=== PATIENT | female | born 1960 | race Caucasian/White ===

== ENCOUNTER 2018-01-23 19:37 | Emergency (ER) | payer OTHER, SELFPAY ==
--- NOTE | 2018-01-23 21:15 | RAD REPORT ---
EXAM DESCRIPTION: RAD - Hand Left 3 View - 01/23/2018 8:46 pm CLINICAL HISTORY: Nontraumatic left hand pain, left thumb pain COMPARISON: None. FINDINGS: No fracture, dislocation or periosteal reaction noted. No measurable arthritic change. No acute bone or joint finding. No foreign body or other soft tissue abnormality. IMPRESSION: Negative left hand examination.
--- NOTE | 2018-01-23 21:24 | ER ---
Nurse's Notes [facility] Name: Lucy Lu Age: 57 yrs Sex: Female : 1960 Arrival Date: 01/23/2018 Time: 19:41 Bed 12 Private MD: Diagnosis: Trigger thumb, left thumb Presentation: 01/23 19:56 Presenting complaint: Patient states: Left thumb pain for 2-3 weeks, denies injury or aj trauma. No swelling noted at this time. Transition of care: patient was not received from another setting of care. Onset of symptoms was December 31, 2017. Care prior to arrival: None. 19:56 Method Of Arrival: Ambulatory 19:56 Acuity: IFEANYI 4 aj Triage Assessment: 19:58 General: Appears in no apparent distress. comfortable, Behavior is calm, cooperative, aj appropriate for age. Pain: Complains of pain in dorsal aspect of proximal phalanx of left thumb and palmar aspect of proximal phalanx of left thumb Aggravated by repositioning. Neuro: Level of Consciousness is awake, alert, obeys commands, Oriented to person, place, time, situation. Respiratory: Airway is patent Respiratory effort is even, unlabored, Respiratory pattern is regular, symmetrical. Derm: Skin is intact, is healthy with good turgor, Skin is pink, warm \T\ dry. normal. Musculoskeletal: Circulation, motion, and sensation intact. Swelling absent. Historical: - Allergies: 19:58 No Known Allergies; aj - Home Meds: 19:58 fenofibrate Oral [Active]; Lexapro Oral [Active]; losartan Oral [Active]; Lovastatin aj Oral [Active]; unkonwn DM2 med [Active]; - PMHx: 19:58 Diabetes - NIDDM; Hypertension; Hyperlipidemia; aj - PSHx: 19:58 Carotid surgery; Tubal ligation; Tonsillectomy; aj - Immunization history:: Adult Immunizations up to date. - Social history:: Smoking status: Patient/guardian denies using tobacco. Screenin:16 Abuse screen: Denies threats or abuse. Denies injuries from another. Nutritional aj1 screening: No deficits noted. Tuberculosis screening: No symptoms or risk factors identified. 21:36 Fall Risk None identified. aj1 Assessment: 20:16 General: Appears in no apparent distress. uncomfortable, Behavior is calm, cooperative, aj1 appropriate for age. Pain: Complains of pain in palmar aspect of proximal phalanx of left thumb and dorsal aspect of proximal phalanx of left thumb Pain does not radiate. Neuro: Level of Consciousness is awake, alert, obeys commands. Cardiovascular: Patient's skin is warm and dry. Respiratory: Airway is patent Respiratory effort is even, unlabored, Respiratory pattern is regular, symmetrical. GI: No signs and/or symptoms were reported involving the gastrointestinal system. : No signs and/or symptoms were reported regarding the genitourinary system. EENT: No signs and/or symptoms were reported regarding the EENT system. Derm: No signs and/or symptoms reported regarding the dermatologic system. Skin is pink, warm \T\ dry. normal. Musculoskeletal: Range of motion: limited in IP of left thumb and MCP of left thumb Swelling present in palmar aspect of proximal phalanx of left thumb and dorsal aspect of proximal phalanx of left thumb. 21:35 Reassessment: Patient appears in no apparent distress at this time. No changes from aj1 previously documented assessment. Patient and/or family updated on plan of care and expected duration. Pain level reassessed. Patient is alert, oriented x 3, equal unlabored respirations, skin warm/dry/pink. Vital Signs: 19:58 BP 162 / 80; Pulse 95; Resp 17; Temp 97.4; Pulse Ox 96% on R/A; Weight 81.65 kg; Height aj 5 ft. 5 in. (165.10 cm); Pain 1/10; 19:58 Body Mass Index 29.95 (81.65 kg, 165.10 cm) aj ED Course: 19:41 Patient arrived in ED. ds1 19:57 Triage completed. aj 19:58 Arm band placed on left wrist. Patient placed in waiting room, Patient notified of wait aj time. X-ray ordered. 20:15 Samantha Cifuentes RN is Primary Nurse. aj1 20:16 Patient has correct armband on for positive identification. Call light in reach. aj1 20:16 No provider procedures requiring assistance completed. aj1 20:22 Jason Perez MD is Attending Physician. tw4 20:40 XRAY Hand LEFT 3 View In Process Unspecified. EDMS 21:22 Parveen Amezquita MD is Referral Physician. tw4 21:35 Patient did not have IV access during this emergency room visit. Aluminum finger splint aj1 applied to dorsal aspect of distal phalanx of left thumb. Administered Medications: No medications were administered Outcome: : Discharge ordered by . tw4 21:35 Discharged to home ambulatory. aj1 21:35 Condition: good 21:35 Discharge instructions given to patient, Instructed on discharge instructions, follow up and referral plans. medication usage, Demonstrated understanding of instructions, follow-up care, medications. 21:36 Patient left the ED. aj1 Signatures: Dispatcher [employer] EDSamantha Adkins RN RN aj1 Tatiana Mas RN RN Rosa Mayo ds1 Jason Perez MD MD tw4
--- NOTE | 2018-01-23 21:24 | EDPHYS ---
Physician Documentation [facility] Name: Lucy Lu Age: 57 yrs Sex: Female : 1960 Arrival Date: 01/23/2018 Time: 19:41 Bed 12 Private MD: ED Physician Jason Perez HPI: 01/23 21:25 This 57 yrs old Female presents to ER via Ambulatory with complaints of Thumb tw4 Pain. Historical: - Allergies: 19:58 No Known Allergies; aj - Home Meds: 19:58 fenofibrate Oral [Active]; Lexapro Oral [Active]; losartan Oral [Active]; Lovastatin aj Oral [Active]; unkonwn DM2 med [Active]; - PMHx: 19:58 Diabetes - NIDDM; Hypertension; Hyperlipidemia; aj - PSHx: 19:58 Carotid surgery; Tubal ligation; Tonsillectomy; aj - Immunization history:: Adult Immunizations up to date. - Social history:: Smoking status: Patient/guardian denies using tobacco. ROS: 01/24 00:22 Constitutional: Negative for fever, chills, and weight loss. tw4 MS/extremity: Positive for decreased range of motion, pain, Negative for injury or acute deformity, abrasion, bite, contusion, deformity, ecchymosis. Exam: 00:22 Constitutional: This is a well developed, well nourished patient who is awake, alert, tw4 and in no acute distress. 00:22 Musculoskeletal/extremity: Extremities: noted in the palmar aspect of distal phalanx of left thumb and palmar aspect of proximal phalanx of left thumb: decreased ROM. Vital Signs: 01/23 19:58 BP 162 / 80; Pulse 95; Resp 17; Temp 97.4; Pulse Ox 96% on R/A; Weight 81.65 kg; Height aj 5 ft. 5 in. (165.10 cm); Pain 10/26; 19:58 Body Mass Index 29.95 (81.65 kg, 165.10 cm) aj MDM: 20:42 Patient medically screened. tw4 01/24 00:23 Differential diagnosis: dislocation, open fracture, contusion, abrasion. Data reviewed: tw4 vital signs, nurses notes. Counseling: I had a detailed discussion with the patient and/or guardian regarding: the historical points, exam findings, and any diagnostic results supporting the discharge/admit diagnosis, radiology results. Special discussion: I discussed with the patient/guardian in detail that at this point there is no indication for admission to the hospital. It is understood, however, that if the symptoms persist or worsen the patient needs to return immediately for re-evaluation. 01/23 19:59 Order name: XRAY Hand LEFT 3 View; Complete Time: 21:21 mel Administered Medications: No medications were administered Disposition: 01/23/18 21:23 Discharged to Home. Impression: Trigger thumb, left thumb. - Condition is Stable. - Discharge Instructions: Trigger Finger. - Prescriptions for Ibuprofen 600 mg Oral Tablet - take 1 tablet by ORAL route every 6 hours As needed take with food; 30 tablet. - Medication Reconciliation Form, Thank You Letter, Antibiotic Education, Prescription Opioid Use form. - Follow up: Private Physician; When: As needed; Reason: Recheck today's complaints, Continuance of care, Re-evaluation by your physician. Follow up: Parveen Amezquita MD; When: As needed; Reason: If symptoms return, Recheck today's complaints, Continuance of care, Re-evaluation by your physician. - Problem is new. - Symptoms have improved. Signatures: Dispatcher [employer] Samantha Plaza RN JADE aj1 Tatiana Mas RN RN aj Jason Perez MD MD tw4
== END 2018-01-23 21:36 | disposition home or self-care (01) ==
LOC: ER 19:37
DX: M65.312 Trigger thumb, left thumb (principal); I10 Essential (primary) hypertension; E11.9 Type 2 diabetes mellitus without complications; E78.5 Hyperlipidemia, unspecified
CPT/HCPCS: 99283

== ENCOUNTER 2018-02-04 20:44 | Emergency (ER) | payer SELFPAY ==
[2018-02-04] MEDS ORDERED: ALBUTEROL 2.5 MG/3 ML NEB SOL ONE (22:40)
[2018-02-04] MEDS ORDERED: IPRATROPIUM BROM 0.5MG/2.5ML ONE (22:40)
--- NOTE | 2018-02-04 23:25 | EDPHYS ---
Physician Documentation [facility] Name: Lucy Lu Age: 57 yrs Sex: Female : 1960 Arrival Date: 02/04/2018 Time: 20:45 Bed 17 Private MD: Vivian Yeager ED Physician Gianna Foreman HPI: 02/04 21:38 This 57 yrs old Female presents to ER via Ambulatory with complaints of kav Breathing Difficulty, Congestion. 22:00 The patient has shortness of breath with light activity. kav 22:01 Onset: The symptoms/episode began/occurred acutely, 3 day(s) ago. Duration: The kav symptoms are continuous, and are steadily getting worse. The patient's shortness of breath is aggravated by coughing, smoking, is alleviated by nothing. Associated signs and symptoms: Pertinent positives: non-productive cough, Pertinent negatives: chest pain, dizziness, fever, nausea, vomiting. Severity of symptoms: At their worst the symptoms were moderate just prior to arrival. The patient or guardian reports cough, described as moderate, with no sputum. pmhx: smoker 1 ppd x 3 years. Historical: - Allergies: 20:49 No Known Allergies; la1 - Home Meds: 21:48 fenofibrate Oral [Active]; Lexapro Oral [Active]; losartan Oral [Active]; Lovastatin bs1 Oral [Active]; unkonwn DM2 med [Active]; - PMHx: 20:49 Diabetes - NIDDM; Hyperlipidemia; Hypertension; la1 - PSHx: 21:47 None; bs1 - Immunization history:: Adult Immunizations up to date. - Social history:: Smoking status: Patient uses tobacco products, smokes one pack cigarettes per day. - Family history:: not pertinent. - Hospitalizations: : No recent hospitalization is reported. ROS: 22:01 Constitutional: Negative for fever, chills, and weight loss, Eyes: Negative for injury, kav pain, redness, and discharge, ENT: Negative for injury, pain, and discharge, Neck: Negative for injury, pain, and swelling, Cardiovascular: Negative for chest pain, palpitations, and edema, Abdomen/GI: Negative for abdominal pain, nausea, vomiting, diarrhea, and constipation, Back: Negative for injury and pain, : Negative for injury, bleeding, discharge, and swelling, MS/Extremity: Negative for injury and deformity, Skin: Negative for injury, rash, and discoloration, Neuro: Negative for headache, weakness, numbness, tingling, and seizure, Psych: Negative for depression, anxiety, suicide ideation, homicidal ideation, and hallucinations, Allergy/Immunology: Negative for hives, rash, and allergies, Endocrine: Negative for neck swelling, polydipsia, polyuria, polyphagia, and marked weight changes, Hematologic/Lymphatic: Negative for swollen nodes, abnormal bleeding, and unusual bruising. 22:01 Respiratory: Positive for cough, "sounds productive". Exam: 22:01 Constitutional: This is a well developed, well nourished patient who is awake, alert, kav and in no acute distress. Head/Face: Normocephalic, atraumatic. Eyes: Pupils equal round and reactive to light, extra-ocular motions intact. Lids and lashes normal. Conjunctiva and sclera are non-icteric and not injected. Cornea within normal limits. Periorbital areas with no swelling, redness, or edema. Neck: Trachea midline, no thyromegaly or masses palpated, and no cervical lymphadenopathy. Supple, full range of motion without nuchal rigidity, or vertebral point tenderness. No Meningismus. Chest/axilla: Normal chest wall appearance and motion. Nontender with no deformity. No lesions are appreciated. Cardiovascular: Regular rate and rhythm with a normal S1 and S2. No gallops, murmurs, or rubs. Normal PMI, no JVD. No pulse deficits. Abdomen/GI: Soft, non-tender, with normal bowel sounds. No distension or tympany. No guarding or rebound. No evidence of tenderness throughout. Back: No spinal tenderness. No costovertebral tenderness. Full range of motion. Skin: Warm, dry with normal turgor. Normal color with no rashes, no lesions, and no evidence of cellulitis. MS/ Extremity: Pulses equal, no cyanosis. Neurovascular intact. Full, normal range of motion. Neuro: Awake and alert, GCS 15, oriented to person, place, time, and situation. Cranial nerves II-XII grossly intact. Motor strength 5/5 in all extremities. Sensory grossly intact. Cerebellar exam normal. Normal gait. Psych: Awake, alert, with orientation to person, place and time. Behavior, mood, and affect are within normal limits. 22:01 ENT: Nose: Turbinates: are swollen bilaterally, Posterior pharynx: is normal, no acute changes, Breath odor: is normal. 22:01 Respiratory: the patient does not display signs of respiratory distress, Respirations: kav normal, no acute changes, Breath sounds: decreased breath sounds, are located in both bases. Vital Signs: 20:49 BP 159 / 73; Pulse 101; Resp 19; Temp 98.9(TE); Pulse Ox 94% on R/A; Weight 81.65 kg; la1 Height 5 ft. 5 in. (165.10 cm); 21:45 BP 150 / 88; Pulse 92; Resp 19; Pulse Ox 100% on R/A; bs1 22:45 BP 112 / 79; Pulse 86; Pulse Ox 100% on R/A; bs1 23:39 BP 126 / 71; Pulse 91; Resp 18; Temp 98.5(O); Pulse Ox 100% on R/A; Pain 0/10; bs1 20:49 Body Mass Index 29.95 (81.65 kg, 165.10 cm) la1 MDM: 21:39 Medical screening is not applicable. [facility] 22:01 Data reviewed: vital signs, nurses notes, radiologic studies, plain films. [facility] 23:23 Medication response: airway improvement. [facility] 02/04 22:00 Order name: CXR XRAY [facility] 02/04 23:23 Interpretation: No acute disease. [facility] Administered Medications: 22:44 Drug: DuoNeb (3:1) (2.5 mg - 0.5 mg) 3 ml Route: Nebulizer; bs1 23:36 Follow up: Response: No adverse reaction; Marked relief of symptoms tl2 23:37 Follow up: Response: No adverse reaction bs1 Disposition: 02/05 01:21 Co-signature as Attending Physician, Gianna Foreman MD. ma2 Disposition: 02/04/18 23:24 Discharged to Home. Impression: Acute upper respiratory infection, unspecified. - Condition is Stable. - Discharge Instructions: Upper Respiratory Infection, Adult. - Prescriptions for Zithromax Z- Arie 250 mg Oral Tablet - take 1 tablet by ORAL route as directed for 5 days Day 1 - take two (2) tablets one time. Day 2, 3, 4 , 5 take one (1) tablet once daily.; 6 tablet. Medrol (Arie) 4 mg Oral Tablets, Dose Pack - take 1 tablet by ORAL route as directed - follow package instructions; 1 packet. benzonatate 100 mg Oral Capsule - take 1 capsule by ORAL route 3 times per day; 30 capsule. - Medication Reconciliation Form, Thank You Letter, Antibiotic Education, Prescription Opioid Use form. - Follow up: Vivian Yeager; When: 1 - 2 days; Reason: If symptoms return. - Problem is new. - Symptoms have improved. Signatures: Dispatcher [employer] Joseline Garcia, [employer]ING CL[employer]ER [employer]ER Mario Alberto Jeffrey RN RN la1 Bhavana Aldridge RN RN bs1 Gianna Foreman MD MD ma2 Wilma Archer RN tl2
--- NOTE | 2018-02-04 23:25 | ER ---
Nurse's Notes [facility] Name: Lucy Lu Age: 57 yrs Sex: Female : 1960 Arrival Date: 02/04/2018 Time: 20:45 Bed 17 Private MD: Vivian Yeager Diagnosis: Acute upper respiratory infection, unspecified Presentation: 02/04 20:48 Presenting complaint: Patient states: I have been having cough and congestion for 3 la1 days. Pt reports non-productive cough. Transition of care: patient was not received from another setting of care. Onset of symptoms was February 04, 2018. Initial Sepsis Screen: Does the patient meet any 2 criteria? HR > 90 bpm. Does the patient have a suspected source of infection? No. Patient's initial sepsis screen is negative. Care prior to arrival: None. 20:48 Method Of Arrival: Ambulatory la1 20:48 Acuity: IFEANYI 3 la1 Triage Assessment: 21:47 General: Appears in no apparent distress. uncomfortable, ill. General: Behavior is bs1 cooperative, anxious. Respiratory: Onset: The symptoms/episode began/occurred gradually, the patient has moderate shortness of breath. Respiratory: Reports shortness of breath at rest on exertion cough that is non-productive. Historical: - Allergies: 20:49 No Known Allergies; la1 - Home Meds: 21:48 fenofibrate Oral [Active]; Lexapro Oral [Active]; losartan Oral [Active]; Lovastatin bs1 Oral [Active]; unkonwn DM2 med [Active]; - PMHx: 20:49 Diabetes - NIDDM; Hyperlipidemia; Hypertension; la1 - PSHx: 21:47 None; bs1 - Immunization history:: Adult Immunizations up to date. - Social history:: Smoking status: Patient uses tobacco products, smokes one pack cigarettes per day. - Family history:: not pertinent. - Hospitalizations: : No recent hospitalization is reported. Screenin:46 Abuse screen: Denies threats or abuse. Denies injuries from another. Nutritional bs1 screening: No deficits noted. Tuberculosis screening: No symptoms or risk factors identified. Fall Risk None identified. Sepsis Screening:. Assessment: 21:44 General: Appears uncomfortable, ill, Behavior is cooperative, anxious. Pain: Complains bs1 of pain in pain in chest when coughing. Neuro: Level of Consciousness is awake, alert, obeys commands, Oriented to person, place, time, situation, Appropriate for age Tray Checker are equal bilaterally Moves all extremities. Cardiovascular: Denies chest pain, palpitations, Heart tones S1 S2 present Capillary refill < 3 seconds Patient's skin is warm and dry. Rhythm is regular. Respiratory: Reports shortness of breath at rest on exertion cough that is non-productive, Airway is patent Trachea midline Respiratory effort is even, unlabored, Breath sounds are clear bilaterally. GI: No deficits noted. No signs and/or symptoms were reported involving the gastrointestinal system. : No deficits noted. No signs and/or symptoms were reported regarding the genitourinary system. EENT: No deficits noted. No signs and/or symptoms were reported regarding the EENT system. Derm: Skin is intact, Skin is pink, warm \T\ dry. Musculoskeletal: Circulation, motion, and sensation intact. Capillary refill < 3 seconds, Range of motion: intact in all extremities. 22:45 Reassessment: Patient and/or family updated on plan of care and expected duration. Pain bs1 level reassessed. Patient is alert, oriented x 3, equal unlabored respirations, skin warm/dry/pink. Patient states symptoms have improved. 23:35 Reassessment: Patient appears in no apparent distress at this time. Patient and/or tl2 family updated on plan of care and expected duration. Pain level reassessed. Patient is alert, oriented x 3, equal unlabored respirations, skin warm/dry/pink. Pt verbalized understanding of discharge instructions, need for follow up and prescription usage. Vital Signs: 20:49 BP 159 / 73; Pulse 101; Resp 19; Temp 98.9(TE); Pulse Ox 94% on R/A; Weight 81.65 kg; la1 Height 5 ft. 5 in. (165.10 cm); 21:45 BP 150 / 88; Pulse 92; Resp 19; Pulse Ox 100% on R/A; bs1 22:45 BP 112 / 79; Pulse 86; Pulse Ox 100% on R/A; bs1 23:39 BP 126 / 71; Pulse 91; Resp 18; Temp 98.5(O); Pulse Ox 100% on R/A; Pain 0/10; bs1 20:49 Body Mass Index 29.95 (81.65 kg, 165.10 cm) la1 ED Course: 20:45 Patient arrived in ED. es 20:46 Vivian Yeager MD is Private Physician. es 20:48 Triage completed. la1 20:49 Arm band placed on left wrist. la1 21:36 Bhavana Aldridge, RN is Primary Nurse. bs1 21:39 Joseline Estrella FNP is PHCP. kav 21:39 Gianna Foreman MD is Attending Physician. kav 21:46 Patient has correct armband on for positive identification. Bed in low position. Call bs1 light in reach. Side rails up X 1. Pulse ox on. NIBP on. 22:27 CXR XRAY In Process Unspecified. EDMS 22:28 X-ray completed. Portable x-ray completed in exam room. Patient tolerated procedure ag1 well. 23:24 Vivian Yeager MD is Referral Physician. kav 23:35 No provider procedures requiring assistance completed. Patient did not have IV access tl2 during this emergency room visit. Administered Medications: 22:44 Drug: DuoNeb (3:1) (2.5 mg - 0.5 mg) 3 ml Route: Nebulizer; bs1 23:36 Follow up: Response: No adverse reaction; Marked relief of symptoms tl2 23:37 Follow up: Response: No adverse reaction bs1 Outcome: 23:24 Discharge ordered by . kav 23:35 Discharged to home ambulatory. tl2 23:35 Condition: stable 23:35 Discharge instructions given to patient, Instructed on discharge instructions, follow up and referral plans. medication usage, Demonstrated understanding of instructions, follow-up care, medications, Prescriptions given X 3. 23:38 Patient left the ED. bs1 Signatures: Dispatcher [employer] EDCO Joseline Estrella FNP FINANCIAL REPJustyna Tijerina Lee RN RN la1 Tala Kelly ag1 Wilma Archer, RN RN tl2 Bhavana Aldridge, RN RN bs1
--- NOTE | 2018-02-05 11:51 | RAD REPORT ---
EXAM DESCRIPTION: RAD - Chest Single View - 02/04/2018 10:27 pm CLINICAL HISTORY: Cough and congestion x3 days COMPARISON: None. FINDINGS: Portable technique limits examination quality. The lungs are grossly clear. The heart is normal in size. No displaced fractures. IMPRESSION: No acute intrathoracic process suspected.
== END 2018-02-04 23:38 | disposition home or self-care (01) ==
LOC: ER 20:44
DX: J06.9 Acute upper respiratory infection, unspecified (principal); I10 Essential (primary) hypertension; E78.5 Hyperlipidemia, unspecified; E11.9 Type 2 diabetes mellitus without complications
CPT/HCPCS: 71045; 94640; 99284

== ENCOUNTER 2018-06-21 14:04 | Emergency (ER) | payer SELFPAY ==
--- NOTE | 2018-06-21 15:26 | RAD REPORT ---
EXAM DESCRIPTION: RAD - Chest Pa And Lat (2 Views) - 06/21/2018 3:19 pm CLINICAL HISTORY: COUGH Chest pain. COMPARISON: Chest Single View dated 02/04/2018 FINDINGS: The lungs are clear. The heart is normal in size. No displaced fractures. Mild calcific te ndinitis noted in both shoulders. IMPRESSION: No acute or concerning finding suspected.
[2018-06-21] MEDS ORDERED: CETIRIZINE HCL 5 MG TABLET ONE (15:43)
[2018-06-21] MEDS ORDERED: KETOROLAC 30 MG/ML INJ ONE (15:43)
--- NOTE | 2018-06-21 16:13 | EDPHYS ---
Physician Documentation [facility] Name: Lucy Lu Age: 57 yrs Sex: Female : 1960 Arrival Date: 06/21/2018 Time: 14:05 Bed 13 Private MD: Vivian Yeager ED Physician Shahram Wagner HPI: 06/21 15:38 This 57 yrs old Female presents to ER via Ambulatory with complaints of Cough.snw 15:38 The patient or guardian reports cough, described as moderate, described as severe. snw Onset: The symptoms/episode began/occurred suddenly, 1 week(s) ago, and became persistent. Associated signs and symptoms: Pertinent positives: congestion, diarrhea, Pertinent negatives: fever. The patient has not experienced similar symptoms in the past. The patient has not recently seen a physician. hx of DM, HTN. Historical: - Allergies: 14:21 No Known Allergies; aa5 - PMHx: 14:21 Diabetes - NIDDM; Hyperlipidemia; Hypertension; aa5 - PSHx: 14:21 Carpal Tunnel Repair; Tonsillectomy; Tubal ligation; aa5 - Immunization history:: Adult Immunizations up to date. - Social history:: Smoking status: Patient uses tobacco products, smokes one pack cigarettes per day. - Ebola Screening: : No symptoms or risks identified at this time. ROS: 15:32 Constitutional: Negative for fever, chills, and weight loss, Eyes: Negative for injury, snw pain, redness, and discharge, ENT: Negative for injury, pain, and discharge, Neck: Negative for injury, pain, and swelling, Cardiovascular: Negative for chest pain, palpitations, and edema, Abdomen/GI: Negative for abdominal pain, nausea, vomiting, and constipation, + loose stools Back: Negative for injury and pain, : Negative for injury, bleeding, discharge, and swelling, MS/Extremity: Negative for injury and deformity, Skin: Negative for injury, rash, and discoloration, Neuro: Negative for headache, weakness, numbness, tingling, and seizure. 15:32 Respiratory: Positive for cough, with no reported sputum. Exam: 15:25 Constitutional: This is a well developed, well nourished patient who is awake, alert, snw and in no acute distress. Head/Face: Normocephalic, atraumatic. Eyes: Pupils equal round and reactive to light, extra-ocular motions intact. Lids and lashes normal. Conjunctiva and sclera are non-icteric and not injected. Cornea within normal limits. Periorbital areas with no swelling, redness, or edema. Neck: Trachea midline, no thyromegaly or masses palpated, and no cervical lymphadenopathy. Supple, full range of motion without nuchal rigidity, or vertebral point tenderness. No Meningismus. Chest/axilla: Normal chest wall appearance and motion. Nontender with no deformity. No lesions are appreciated. Cardiovascular: Regular rate and rhythm with a normal S1 and S2. No gallops, murmurs, or rubs. Normal PMI, no JVD. No pulse deficits. Respiratory: Lungs have equal breath sounds bilaterally, clear to auscultation and percussion. No rales, rhonchi or wheezes noted. No increased work of breathing, no retractions or nasal flaring. Abdomen/GI: Soft, non-tender, with normal bowel sounds. No distension or tympany. No guarding or rebound. No evidence of tenderness throughout. Back: No spinal tenderness. No costovertebral tenderness. Full range of motion. Skin: Warm, dry with normal turgor. Normal color with no rashes, no lesions, and no evidence of cellulitis. MS/ Extremity: Pulses equal, no cyanosis. Neurovascular intact. Full, normal range of motion. Neuro: Awake and alert, GCS 15, oriented to person, place, time, and situation. Cranial nerves II-XII grossly intact. Motor strength 5/5 in all extremities. Sensory grossly intact. Cerebellar exam normal. Normal gait. Psych: Awake, alert, with orientation to person, place and time. Behavior, mood, and affect are within normal limits. 15:25 ENT: External ear(s): are unremarkable, Ear canal(s): are normal, TM's: are normal, Nose: Nasal mucosa: edematous, Mouth: Oral mucosa: moist, Posterior pharynx: + thick drainage, Voice: is normal. Vital Signs: 14:21 BP 147 / 88; Pulse 79; Resp 16 S; Temp 97.8(TE); Pulse Ox 95% on R/A; Weight 81.19 kg aa5 (R); Height 5 ft. 5 in. (165.10 cm) (R); Pain 0/10; 15:34 BP 124 / 64; Pulse 73; Resp 19; Pulse Ox 96% on R/A; aj 17:30 BP 137 / 67; Pulse 75; Resp 18 S; Pulse Ox 96% on R/A; aa5 14:21 Body Mass Index 29.79 (81.19 kg, 165.10 cm) aa5 MDM: 14:26 Patient medically screened. snw 16:50 Data reviewed: vital signs, nurses notes. Data interpreted: Pulse oximetry: on room air snw is 96 %. Interpretation: acceptable. Counseling: I had a detailed discussion with the patient and/or guardian regarding: the historical points, exam findings, and any diagnostic results supporting the discharge/admit diagnosis, radiology results, the need for outpatient follow up, to return to the emergency department if symptoms worsen or persist or if there are any questions or concerns that arise at home. Special discussion: Based on the history and exam findings, there is no indication for further emergent testing or inpatient evaluation. I discussed with the patient/guardian the need to see the primary care provider for further evaluation of the symptoms. 06/21 14:56 Order name: Chest Pa And Lat (2 Views) XRAY; Complete Time: 15:37 snw Administered Medications: 15:42 Drug: TORadol 60 mg Route: IM; Site: right gluteus; aj 15:42 Drug: ZyrTEC - Cetirizine 10 mg Route: PO; aj 16:11 Not Given (Physician Discretion): Tussionex Pennkinetic ER 5 ml PO once aj Disposition: 06/22 06:57 Co-signature as Attending Physician, Shahram Wagner MD I agree with the assessment and tori plan of care. Disposition: 06/21/18 16:12 Discharged to Home. Impression: Cough. - Condition is Stable. - Discharge Instructions: Upper Respiratory Infection, Adult, Cough, Adult. - Prescriptions for Nasonex 50 mcg/actuation Nasal spray,non- aerosol - spray 2 spray by INTRANASAL route once daily; 1 Cartridge. Tessalon Perles 100 mg Oral Capsule - take 1 capsule by ORAL route every 8 hours As needed; 15 capsule. Albuterol Sulfate 90 mcg/actuation - inhale 1-2 puff by INHALATION route every 4-6 hours; 1 Inhaler. - Medication Reconciliation Form, Thank You Letter, Antibiotic Education, Prescription Opioid Use form. - Follow up: Vivian Yeager MD; When: 2 - 3 days; Reason: Recheck today's complaints, Continuance of care, Re-evaluation by your physician. Follow up: Emergency Department; When: As needed; Reason: Worsening of condition. Signatures: Dispatcher [employer] Tatiana Hart, RN Shahram Neumann MD MD cha Therrien, Shelly, MACHINE OPERATOR GENERAL-C MACHINE OPERATOR GENERAL-Csnw Vicenta Reyna RN RN aa5 Corrections: (The following items were deleted from the chart) 06/21 17:37 16:12 06/21/2018 16:12 Discharged to Home. Impression: Cough. Condition is Stable. aa5 Discharge Instructions: Upper Respiratory Infection, Adult, Cough, Adult. Prescriptions for Nasonex 50 mcg/actuation Nasal spray,non-aerosol - spray 2 spray by INTRANASAL route once daily; 1 Cartridge, Tessalon Perles 100 mg Oral Capsule - take 1 capsule by ORAL route every 8 hours As needed; 15 capsule, Albuterol Sulfate 90 mcg/actuation - inhale 1-2 puff by INHALATION route every 4-6 hours; 1 Inhaler. and Forms are Medication Reconciliation Form, Thank You Letter, Antibiotic Education, Prescription Opioid Use. Follow up: Vivian Yeager; When: 2 - 3 days; Reason: Recheck today's complaints, Continuance of care, Re-evaluation by your physician. Follow up: Emergency Department; When: As needed; Reason: Worsening of condition. snw
--- NOTE | 2018-06-21 16:13 | ER ---
Nurse's Notes [facility] Name: Lucy Lu Age: 57 yrs Sex: Female : 1960 Arrival Date: 06/21/2018 Time: 14:05 Bed 13 Private MD: Vivian Yeager Diagnosis: Cough Presentation: 06/21 14:19 Presenting complaint: Patient states: productive cough that began 1 week ago. Pt denies aa5 fever/chills. Reports congestion. Transition of care: patient was not received from another setting of care. Onset of symptoms was 2017. Risk Assessment: Do you want to hurt yourself or someone else? Patient reports no desire to harm self or others. Initial Sepsis Screen: Does the patient meet any 2 criteria? No. Patient's initial sepsis screen is negative. Does the patient have a suspected source of infection? No. Patient's initial sepsis screen is negative. Care prior to arrival: None. 14:19 Method Of Arrival: Ambulatory aa5 14:19 Acuity: IFEANYI 3 aa5 Historical: - Allergies: 14:21 No Known Allergies; aa5 - PMHx: 14:21 Diabetes - NIDDM; Hyperlipidemia; Hypertension; aa5 - PSHx: 14:21 Carpal Tunnel Repair; Tonsillectomy; Tubal ligation; aa5 - Immunization history:: Adult Immunizations up to date. - Social history:: Smoking status: Patient uses tobacco products, smokes one pack cigarettes per day. - Ebola Screening: : No symptoms or risks identified at this time. Screenin:34 Abuse screen: Denies threats or abuse. Denies injuries from another. Nutritional aj screening: No deficits noted. Tuberculosis screening: No symptoms or risk factors identified. Fall Risk None identified. Assessment: 14:52 General: Appears in no apparent distress. comfortable, Behavior is calm, cooperative, aj appropriate for age. Pain: Denies pain. Neuro: Level of Consciousness is awake, alert, obeys commands, Oriented to person, place, time, situation, Appropriate for age. Respiratory: Reports cough that is Airway is patent Respiratory effort is even, unlabored, Respiratory pattern is regular, symmetrical. EENT: Reports dry mouth. Derm: Skin is intact, is healthy with good turgor, Skin is pink, warm \T\ dry. normal. 17:35 Reassessment: Patient is alert, oriented x 3, equal unlabored respirations, skin aa5 warm/dry/pink. Vital Signs: 14:21 BP 147 / 88; Pulse 79; Resp 16 S; Temp 97.8(TE); Pulse Ox 95% on R/A; Weight 81.19 kg aa5 (R); Height 5 ft. 5 in. (165.10 cm) (R); Pain 0/10; 15:34 BP 124 / 64; Pulse 73; Resp 19; Pulse Ox 96% on R/A; aj 17:30 BP 137 / 67; Pulse 75; Resp 18 S; Pulse Ox 96% on R/A; aa5 14:21 Body Mass Index 29.79 (81.19 kg, 165.10 cm) aa5 ED Course: 14:05 Patient arrived in ED. rg4 14:06 Vivian Yeager MD is Private Physician. rg4 14:08 [facility] snw 14:08 Shahram Wagner MD is Attending Physician. snw 14:20 Triage completed. aa5 14:20 Arm band placed on. aa5 14:29 Tatiana Mas, RN is Primary Nurse. aj 15:12 X-ray completed. Patient tolerated procedure well. Patient moved back from radiology. sw 15:19 Chest Pa And Lat (2 Views) XRAY In Process Unspecified. EDMS 16:03 Vivian Yeager MD is Referral Physician. snw 17:35 Patient did not have IV access during this emergency room visit. aa5 17:35 No provider procedures requiring assistance completed. aa5 Administered Medications: 15:42 Drug: TORadol 60 mg Route: IM; Site: right gluteus; aj 15:42 Drug: ZyrTEC - Cetirizine 10 mg Route: PO; aj 16:11 Not Given (Physician Discretion): Tussionex Pennkinetic ER 5 ml PO once aj Outcome: 16:12 Discharge ordered by . snw 17:35 Discharged to home ambulatory. aa5 17:35 Condition: stable 17:35 Discharge instructions given to patient, Instructed on discharge instructions, follow up and referral plans. medication usage, Demonstrated understanding of instructions, follow-up care, medications, Prescriptions given X 3. 17:37 Patient left the ED. aa5 Signatures: Dispatcher [employer] [facility] Tatiana Mas, RN RN aj Yvette Post, KIER OPERATOR-C KIER OPERATOR-Csnw Vicenta Reyna, RN RN aa5 Nedra Saeed Rubi rg4
== END 2018-06-21 17:37 | disposition home or self-care (01) ==
LOC: ER 14:04
DX: R05 Cough (principal); I10 Essential (primary) hypertension; E11.9 Type 2 diabetes mellitus without complications; F17.210 Nicotine dependence, cigarettes, uncomplicated
CPT/HCPCS: 71046; 96372; 99283

== ENCOUNTER 2019-05-27 16:24 | Emergency (ER) | payer OTHER ==
--- OUTSIDE RECORDS SUMMARY | 2019-05-27 16:27 | XMS REPORT ---
:1960 Author Organization eClinicalWorks Care Team Providers Name Role Phone Parveen Aemzquita Provider Role Unavailable Allergies, Adverse Reactions, Alerts Substance Reaction Event Type N.K.D.A. Info Not Available Non Drug Allergy Problems Problem Type Condition Code Onset Dates Condition Status Problem Trigger finger of both hands M65.30 Active Problem Depression with anxiety F41.8 Active Problem Other chronic pain G89.29 Active Problem Pain, joint, hand, right M25.541 Active Problem Depression with anxiety F41.8 Active Problem Essential hypertension I10 Active Problem Arthritis M19.90 Active Problem Trigger finger, right index finger M65.321 Active Problem Low back pain M54.5 Active Problem Uncontrolled type 2 diabetes E11.65 Active mellitus with hyperglycemia Problem Vitamin B12 deficiency E53.8 Active Problem Arthritis M19.90 Active Problem Pain of finger of left hand M79.645 Active Problem Abnormal CBC R79.89 Active Problem Abnormal renal function test R94.4 Active Problem Hypertension, unspecified type I10 Active Problem Pain of left hand M79.642 Active Problem Influenza vaccination administered Z23 Active at current visit Assessment Trigger finger, right index finger M65.321 Active Problem Hyperlipidemia, unspecified E78.5 Active hyperlipidemia type Problem Pain in right finger(s) M79.644 Active Assessment Pain, joint, hand, right M25.541 Active Problem Leukocytosis, unspecified type D72.829 Active Problem Pain in right hand M79.641 Active Medications Medication Code Code Instructions Start End Status Dosage System Date Date Losartan ND 15245391355 50-12.5 MG Jul 11, Active 1 tablet Potassium-HCTZ Orally Once a 2018 day Lisinopril-[place] ND 35920736541 10-12.5 MG Active 1 tablet chlorothiazide Orally Once a day Losartan ND 84991489905 50 MG Orally Active 1 tablet Potassium Once a day Escitalopram ND 51260019247 20 mg Orally Active 1 tablet Oxalate Once a day Fenofibrate ND 90139452166 160 MG Orally Active 1 tablet Once a day with food Mobic [facility] 49798046568 7.5 MG Orally Active 1-2 Once a day tablets Metformin HCl [facility] 24406470165 1000 MG Orally December Active 1 tablet Twice a day 2018 with meals Farxiga [facility] 97904246016 10mg Orally DecemberSep 30, Active 1 tablet Once daily 2018 Lovastatin [facility] 80420467204 40 MG Orally Active 1 tablet Once a day with the evening meal Results No Known Results Summary Purpose eClinicalWorks Submission
--- OUTSIDE RECORDS SUMMARY | 2019-05-27 16:27 | XMS REPORT ---
:1960 Author Organization eClinicalWorks Care Team Providers Name Role Phone Vivian Yeager Provider Role Unavailable Allergies, Adverse Reactions, Alerts Substance Reaction Event Type N.K.D.A. Info Not Available Non Drug Allergy Problems Problem Type Condition Code Onset Dates Condition Status Assessment Trigger finger of both hands M65.30 Active Assessment Pain in right hand M79.641 Active Problem Hypertension, unspecified type I10 Active Assessment Pain of left hand M79.642 Active Problem Pain of finger of left hand M79.645 Active Assessment Depression with anxiety F41.8 Active Problem Abnormal CBC R79.89 Active Problem Leukocytosis, unspecified type D72.829 Active Problem Hyperlipidemia, unspecified E78.5 Active hyperlipidemia type Problem Other chronic pain G89.29 Active Problem Trigger finger of both hands M65.30 Active Assessment Influenza vaccination administered Z23 Active at current visit Assessment Uncontrolled type 2 diabetes E11.65 Active mellitus with hyperglycemia Problem Depression with anxiety F41.8 Active Assessment Hyperlipidemia, unspecified E78.5 Active hyperlipidemia type Problem Influenza vaccination administered Z23 Active at current visit Problem Pain of left hand M79.642 Active Problem Pain in right hand M79.641 Active Problem Pain in right finger(s) M79.644 Active Problem Arthritis M19.90 Active Problem Depression with anxiety F41.8 Active Assessment Hypertension, unspecified type I10 Active Problem Uncontrolled type 2 diabetes E11.65 Active mellitus with hyperglycemia Problem Abnormal renal function test R94.4 Active Problem Low back pain M54.5 Active Problem Arthritis M19.90 Active Medications Medication Code Code Instructions Start End Status Dosage System Date Date Lovastatin ND 74028760397 40 MG Orally Active 1 tablet with Once a day the evening meal Mobic ND 99424594426 7.5 MG Orally Active 1-2 tablets Once a day Xigduo XR ND 71941188949 5-1000 MG April Active 1 tablet Orally Twice a 2018 Escitalopram ND 15090836487 20 mg Orally Active 1 tablet Oxalate Once a day Ketoconazole ND 29278299351 2 % Externally Jul 26Aug Active 1 application Once a day 2017 09, to affected 2018 area Losartan ND 12203904262 50 MG Orally Active 1 tablet Potassium Once a day Lisinopril-Hydr ND 76664234266 10-12.5 MG Active 1 tablet ochlorothiazide Orally Once a day Fenofibrate ND 90529647324 160 MG Orally Active 1 tablet with Once a day food Results No Known Results Immunizations Vaccine Administration Date Flucelvax - single dose syringe Jul 26, 2018 Summary Purpose eClinicalWorks Submission
--- OUTSIDE RECORDS SUMMARY | 2019-05-27 16:27 | XMS REPORT ---
:1960 Author Organization eClinicalWorks Care Team Providers Name Role Phone Vivian Yeager Provider Role Unavailable Allergies No Known Allergies Problems Problem Type Condition Code Onset Dates [...] administered Z23 Active at current visit Problem Hyperlipidemia, unspecified E78.5 Active hyperlipidemia type Problem Pain in right finger(s) M79.644 Active Problem Leukocytosis, unspecified type D72.829 Active Problem Pain in right hand M79.641 Active Medications No Known Medications Results No Known Results Summary Purpose eClinicalWorks Submission
--- OUTSIDE RECORDS SUMMARY | 2019-05-27 16:27 | XMS REPORT ---
:1960 [facility] Team Providers Name Role Phone Vivian Yeager Provider Role Unavailable Allergies No Known Allergies Problems Problem Type Condition Code Onset Dates Condition Status Problem Influenza vaccination administered Z23 Active at current visit Problem Pain in right hand M79.641 Active Problem Pain in right finger(s) M79.644 Active Problem Vitamin B12 deficiency E53.8 Active Problem Arthritis M19.90 Active Assessment Uncontrolled type 2 diabetes E11.65 Active mellitus with hyperglycemia Problem Essential hypertension I10 Active Problem Other chronic pain G89.29 Active Problem Trigger finger of both hands M65.30 Active Problem Low back pain M54.5 Active Problem Depression with anxiety F41.8 Active Problem Uncontrolled type 2 diabetes E11.65 Active mellitus with hyperglycemia Problem Abnormal renal function test R94.4 Active Problem Arthritis M19.90 Active Problem Depression with anxiety F41.8 Active Problem Abnormal CBC R79.89 Active Problem Hyperlipidemia, unspecified E78.5 Active hyperlipidemia type Problem Hypertension, unspecified type I10 Active Problem Leukocytosis, unspecified type D72.829 Active Problem Pain of finger of left hand M79.645 Active Problem Pain of left hand M79.642 Active Medications Medication Code Code Instructions Start End Date Status Dosage System Date Escitalopram [facility] 57525145338 20 mg Orally Active 1 tablet Oxalate Once a day Fenofibrate [facility] 89995009838 160 MG Orally Active 1 tablet Once a day with food Losartan [facility] 40112407791 50 MG Orally Active 1 tablet Potassium Once a day Lisinopril-Hydr [facility] 48002599585 10-12.5 MG Active 1 tablet ochlorothiazide Orally Once a day Metformin HCl [facility] 61513396668 1000 MG Orally December Active 1 tablet Twice a day 2018 with meals Lovastatin [facility] 00258898650 40 MG Orally Active 1 tablet Once a day with the evening meal Farxiga ND 70333671871 10mg Orally DecemberSep 30, Active 1 tablet Once daily 2018 Xigduo XR [facility] 08340651185 5-1000 MG December Inactive 1 tablet Orally Twice a 2018 Mobic [facility] 56088668678 7.5 MG Orally Active 1-2 Once a day tablets Losartan [facility] 99715231847 50-12.5 MG Jul 27 Active 1 tablet Potassium-HCTZ Orally Once a 2017 day Results No Known Results Summary Purpose eClinicalWorks Submission
--- OUTSIDE RECORDS SUMMARY | 2019-05-27 16:27 | XMS REPORT ---
:1960 [facility] Team Providers Name Role Phone Vivian Yeager Provider Role Unavailable Allergies, Adverse Reactions, Alerts Substance Reaction Event Type N.K.D.A. Info Not Available Non Drug Allergy Problems Problem Type Condition Code Onset Dates Condition Status Assessment Depression with anxiety F41.8 Active Assessment Hyperlipidemia, unspecified E78.5 Active hyperlipidemia type Assessment Uncontrolled type 2 diabetes E11.65 Active mellitus with hyperglycemia Assessment Hot flashes R23.2 Active Assessment Fatigue, unspecified type R53.83 Active Assessment Essential hypertension I10 Active Problem Pain of finger of left hand M79.645 Active Problem Influenza vaccination administered Z23 Active at current visit Problem Arthritis M19.90 Active Problem Pain in right finger(s) M79.644 Active Problem Low back pain M54.5 Active Problem Pain in right hand M79.641 Active Problem Hot flashes R23.2 Active Problem Trigger finger, right index finger M65.321 Active Problem Other chronic pain G89.29 Active Problem Trigger finger of both hands M65.30 Active Problem Fatigue, unspecified type R53.83 Active Problem Depression with anxiety F41.8 Active Problem Vitamin B12 deficiency E53.8 Active Problem Arthritis M19.90 Active Problem Pain, joint, hand, right M25.541 Active Problem Essential hypertension I10 Active Problem Abnormal CBC R79.89 Active Problem Hyperlipidemia, unspecified E78.5 Active hyperlipidemia type Problem Depression with anxiety F41.8 Active Problem Uncontrolled type 2 diabetes E11.65 Active mellitus with hyperglycemia Problem Abnormal renal function test R94.4 Active Problem Hypertension, unspecified type I10 Active Problem Leukocytosis, unspecified type D72.829 Active Problem Pain of left hand M79.642 Active Medications Medication Code Code Instructions Start End Status Dosage System Date Date Fenofibrate ND 99233096483 160 MG Orally Inactive 1 tablet Once a day with food Gemfibrozil ND 45472392177 600 MG Orally April 18, Active 1 tablet Take twice a 2019 as day 30 minutes directed before morning and evening meals Lisinopril-Hydr NDC 01689192856 10-12.5 MG Active 1 tablet ochlorothiazide Orally Once a day Losartan [facility] 48738565847 50 MG Orally Active 1 tablet Potassium Once a day Lovastatin [facility] 39710230375 40 MG Orally Active 1 tablet Once a day with the evening meal Mobic [facility] 46491527350 7.5 MG Orally Active 1-2 Once a day tablets Metformin HCl [facility] 57596146152 1000 MG Orally December Active 1 tablet Twice a day 2018 with meals Escitalopram [facility] 30479633891 20 mg Orally Active 1 tablet Oxalate Once a day Losartan [facility] 11789473432 50-12.5 MG Jul 27, Active 1 tablet Potassium-HCTZ Orally Once a 2017 day Farxiga [facility] 37472448111 10mg Orally DecemberSep 30, Active 1 tablet Once daily 2018 Results No Known Results Summary Purpose eClinicalWorks Submission
--- OUTSIDE RECORDS SUMMARY | 2019-05-27 16:27 | XMS REPORT ---
:1960 Author Organization eClinicalWorks Care Team Providers Name Role Phone Vivian Yeager Provider Role Unavailable Allergies, Adverse Reactions, Alerts Substance Reaction Event Type N.K.D.A. Info Not Available Non Drug Allergy Problems Problem Type Condition Code Onset Dates Condition Status Assessment Pain of left hand M79.642 Active Assessment Pain in right hand M79.641 Active Assessment Depression with anxiety F41.8 Active Problem Leukocytosis, unspecified type D72.829 Active Assessment Hyperlipidemia, unspecified E78.5 Active hyperlipidemia type Problem Pain of left hand M79.642 Active Assessment Uncontrolled type 2 diabetes E11.65 Active mellitus with hyperglycemia Problem Influenza vaccination administered Z23 Active at current visit Problem Pain in right hand M79.641 Active Problem Pain in right finger(s) M79.644 Active Problem Vitamin B12 deficiency E53.8 Active Problem Arthritis M19.90 Active Assessment Essential hypertension I10 Active Problem Essential hypertension I10 Active Assessment Vitamin B12 deficiency E53.8 Active Problem Other chronic pain G89.29 Active [...] unspecified type I10 Active Problem Pain of finger of left hand M79.645 Active Medications Medication Code Code Instructions Start End Status Dosage System Date Date Escitalopram [facility] 35149628496 20 mg Orally Active 1 tablet Oxalate Once a day Fenofibrate ND 57008388011 160 MG Orally Active 1 tablet Once a day with food Xigduo XR ND 48243637951 5-1000 MG Sep 28, Active 1 tablet Orally Twice a 2019 day Lisinopril-[place] ND 35496384145 10-12.5 MG Active 1 tablet chlorothiazide Orally Once a day Lovastatin ND 55079102997 40 MG Orally Active 1 tablet Once a day with the evening meal Mobic [facility] 55025146060 7.5 MG Orally Active 1-2 Once a day tablets Losartan [facility] 99282141530 50 MG Orally Active 1 tablet Potassium Once a day Losartan [facility] 91052665697 50-12.5 MG Oct 11, Active 1 tablet Potassium-HCTZ Orally Once a 2017 Results No Known Results Summary Purpose eClinicalWorks Submission
--- OUTSIDE RECORDS SUMMARY | 2019-05-27 16:27 | XMS REPORT ---
:1960 Author Organization e[employer] Care Team Providers Name Role Phone Vivian Yeager Provider Role Unavailable Allergies No Known Allergies Problems Problem Type Condition Code Onset Dates Condition Status Problem Abnormal CBC R79.89 Active Problem Leukocytosis, unspecified type D72.829 Active Problem Hyperlipidemia, unspecified E78.5 Active hyperlipidemia type Problem Other chronic pain G89.29 Active Problem Trigger finger of both hands M65.30 Active Problem Depression with anxiety F41.8 Active Problem Influenza vaccination administered Z23 Active [...] Problem Low back pain M54.5 Active Problem Hypertension, unspecified type I10 Active Problem Arthritis M19.90 Active Problem Pain of finger of left hand M79.645 Active Medications Medication Code Code Instructions Start End Date Status Dosage System Date Losartan [facility] 27759759060 50-12.5 MG Jul 27, Active 1 tablet Potassium-HCTZ Orally Once a 2018 day Results No Known Results Summary Purpose eClinicalWorks Submission
[2019-05-27] MEDS ORDERED: NA CHLORIDE 0.9% 1,000 ML ONE (17:03)
[2019-05-27] MEDS ORDERED: KETOROLAC 30 MG/ML INJ ONE (17:03)
[2019-05-27 17:14] LABS: Absolute Lymphocytes (CBC) 4.9 K/uL (0.7-4.9); Basophils % 0.9 % (0-1.3); Hematocrit 43.9 % (36.0-45.0); Lymphocytes % 47.6 % (15.3-44.8); MPV 7.1 fL (7.6-11.3); RBC Red Blood Cell Count 4.66 M/uL (3.86-4.86)
[2019-05-27 17:24] LABS: ALT/SGPT 34 U/L (12-78); AST/SGOT 22 U/L (15-37); Albumin 4.6 g/dL (3.4-5.0); Alkaline Phosphatase 59 U/L (45-117); BUN Blood Urea Nitrogen 17 mg/dL (7-18); Bicarbonate 27 mmol/L (21-32); Bilirubin Direct < 0.1 mg/dL (0-0.2); Bilirubin Total 0.2 mg/dL (0.2-1.0); Glucose Level 82 mg/dL (74-106); Lipase 166 U/L (73-393); Potassium 3.8 mmol/L (3.5-5.1); Protein, Total 7.5 g/dL (6.4-8.2); Sodium Level 141 mmol/L (136-145)
--- NOTE | 2019-05-27 18:13 | RAD REPORT ---
EXAM DESCRIPTION: CT - Stone Protocol - 05/27/2019 5:14 pm CLINICAL HISTORY: Abdominal pain, right flank pain COMPARISON: August 2017 TECHNIQUE: Axial 5 mm thick images were obtained without oral or IV contrast. The yeiae-mn-pgil span s the entirety of the system including uppermost abdomen and lung bases. All CT scans are performed using dose optimization technique as appropriate and may include automated exposure control or mA/KV adjustment according to patient size. FINDINGS: No hydronephrosis is present and no obstructing ureteral calculi. No suspicious renal mass es. Isodense masses and pyelonephritis are not excluded on a stone protocol CT scan. Urinary bladder is contracted limiting assessment. No bladder calculi. Phleboliths are seen in the pelvis. Uterus and ovaries show no suspicious findings for age. No significant adrenal finding. Imaged portions of the liver, spleen and pancreas show no focal findings on non-contrast imaging. Dif fuse fatty infiltration of the liver is present. No gallbladder or biliary tree abnormality identifie d. No suspicious bowel findings. Appendix is normal. No hernia, mass or bulky lymphadenopathy noted. No free air, free fluid or inflammatory stranding. No significant bony abnormality. IMPRESSION: Noncontrast CT abdomen and pelvis imaging shows no acute finding. Diffuse fatty infiltration of the liver. Isodense masses and pyelonephritis are not excluded on stone protocol technique.
--- NOTE | 2019-05-27 18:21 | EDPHYS ---
Physician Documentation [facility] Name: Lucy Lu Age: 58 yrs Sex: Female : 1960 Arrival Date: 05/27/2019 Time: 16:25 Bed 16 Private MD: ED Physician Shahram Wagner HPI: 05/27 16:49 This 58 yrs old Female presents to ER via Ambulatory with complaints of Flank tori Pain. 16:49 The patient complains of pain in the right mid back and right low back. The pain does tori not radiate. Onset: The symptoms/episode began/occurred 3 day(s) ago. Modifying factors: The symptoms are alleviated by nothing. the symptoms are aggravated by nothing. Associated signs and symptoms: The patient has no apparent associated signs or symptoms. Severity of pain: At its worst the pain was mild moderate in the emergency department the pain is unchanged. The patient has not experienced similar symptoms in the past. Historical: - Allergies: 16:36 No Known Allergies; la1 - PMHx: 16:36 Diabetes - NIDDM; Hyperlipidemia; Hypertension; la1 - Immunization history:: Adult Immunizations up to date. - Social history:: Smoking status: Patient uses tobacco products, smokes one pack cigarettes per day. - Ebola Screening: : No symptoms or risks identified at this time. ROS: 16:50 Constitutional: Negative for fever, chills, and weight loss, Eyes: Negative for injury, tori pain, redness, and discharge, ENT: Negative for injury, pain, and discharge, Neck: Negative for injury, pain, and swelling, Cardiovascular: Negative for chest pain, palpitations, and edema, Respiratory: Negative for shortness of breath, cough, wheezing, and pleuritic chest pain, Abdomen/GI: Negative for abdominal pain, nausea, vomiting, diarrhea, and constipation, : Negative for injury, bleeding, discharge, and swelling, MS/Extremity: Negative for injury and deformity, Skin: Negative for injury, rash, and discoloration, Neuro: Negative for headache, weakness, numbness, tingling, and seizure, Psych: Negative for depression, anxiety, suicide ideation, homicidal ideation, and hallucinations, Allergy/Immunology: Negative for hives, rash, and allergies, Endocrine: Negative for neck swelling, polydipsia, polyuria, polyphagia, and marked weight changes, Hematologic/Lymphatic: Negative for swollen nodes, abnormal bleeding, and unusual bruising. 16:50 Back: Positive for pain at rest, flank pain, on the right. Exam: 16:50 Constitutional: This is a well developed, well nourished patient who is awake, alert, tori and in no acute distress. Head/Face: Normocephalic, atraumatic. Eyes: Pupils equal round and reactive to light, extra-ocular motions intact. Lids and lashes normal. Conjunctiva and sclera are non-icteric and not injected. Cornea within normal limits. Periorbital areas with no swelling, redness, or edema. ENT: Nares patent. No nasal discharge, no septal abnormalities noted. Tympanic membranes are normal and external auditory canals are clear. Oropharynx with no redness, swelling, or masses, exudates, or evidence of obstruction, uvula midline. Mucous membranes moist. Neck: Trachea midline, no thyromegaly or masses palpated, and no cervical lymphadenopathy. Supple, full range of motion without nuchal rigidity, or vertebral point tenderness. No Meningismus. Chest/axilla: Normal chest wall appearance and motion. Nontender with no deformity. No lesions are appreciated. Cardiovascular: Regular rate and rhythm with a normal S1 and S2. No gallops, murmurs, or rubs. Normal PMI, no JVD. No pulse deficits. Respiratory: Lungs have equal breath sounds bilaterally, clear to auscultation and percussion. No rales, rhonchi or wheezes noted. No increased work of breathing, no retractions or nasal flaring. Abdomen/GI: Soft, non-tender, with normal bowel sounds. No distension or tympany. No guarding or rebound. No evidence of tenderness throughout. Female : Normal external genitalia. Skin: Warm, dry with normal turgor. Normal color with no rashes, no lesions, and no evidence of cellulitis. MS/ Extremity: Pulses equal, no cyanosis. Neurovascular intact. Full, normal range of motion. Neuro: Awake and alert, GCS 15, oriented to person, place, time, and situation. Cranial nerves II-XII grossly intact. Motor strength 5/5 in all extremities. Sensory grossly intact. Cerebellar exam normal. Normal gait. Psych: Awake, alert, with orientation to person, place and time. Behavior, mood, and affect are within normal limits. 16:50 Back: pain, that is mild, that is moderate, ROM is normal, painless, normal spinal alignment noted, CVA tenderness, that is mild, is noted on the right, vertebral tenderness, is not appreciated, muscle spasm, is not present. Vital Signs: 16:36 BP 149 / 84; Pulse 79; Resp 16; Temp 97.6; Pulse Ox 98% on R/A; Weight 82.55 kg; Height la1 5 ft. 5 in. (165.10 cm); 18:05 BP 138 / 71; Pulse 67; Resp 18; Pulse Ox 98% on R/A; aj1 16:36 Body Mass Index 30.29 (82.55 kg, 165.10 cm) la1 MDM: 16:41 Patient medically screened. [facility] 16:51 Data reviewed: vital signs, nurses notes, lab test result(s), radiologic studies, CT tori scan. 05/27 16:48 Order name: Basic Metabolic Panel; Complete Time: 17:40 [facility] 05/27 16:48 Order name: CBC with Diff; Complete Time: 17:40 [facility] 05/27 16:48 Order name: Creatinine for Radiology; Complete Time: 17:40 [facility] 05/27 16:48 Order name: Hepatic Function; Complete Time: 17:40 [facility] 05/27 16:48 Order name: Lipase; Complete Time: 17:40 [facility] 05/27 16:48 Order name: Urine Culture [facility] 05/27 16:48 Order name: IV Saline Lock; Complete Time: 17:03 [facility] 05/27 16:48 Order name: Labs collected and sent; Complete Time: 17:03 [facility] 05/27 16:48 Order name: Urine Dipstick-Ancillary (obtain specimen); Complete Time: 18:40 [facility] 05/27 16:48 Order name: CT Stone Protocol; Complete Time: 18:17 [facility] 05/27 18:41 Order name: Urine Dipstick--Ancillary (enter results) em1 Administered Medications: 17:02 Drug: TORadol 30 mg Route: IVP; Site: left antecubital; aj1 18:35 Follow up: Response: No adverse reaction; Pain is decreased [facility] 17:03 Drug: NS 0.9% 1000 ml Route: IV; Rate: 1 bolus; Site: left antecubital; aj1 18:34 Follow up: IV Status: Completed infusion; IV Intake: 1000ml aj1 Disposition: 05/27/19 18:20 Discharged to Home. Impression: Type 2 diabetes mellitus, Abdominal tenderness. - Condition is Stable. - Discharge Instructions: Abdominal Pain, Adult, Type 2 Diabetes Mellitus, Diagnosis, Adult, Abdominal Pain, Adult, Guop-sn-Olkc, Type 2 Diabetes Mellitus, Diagnosis, Adult, Aalp-as-Mviy. - Prescriptions for Tylenol- Codeine #3 300-30 mg Oral Tablet - take 2 tablets by ORAL route every 6 hours As needed; 24 tablet. Zofran 4 mg Oral Tablet - take 1 tablet by ORAL route every 12 hours As needed; 20 tablet. Motrin IB 200 mg Oral Tablet - take 2 tablet by ORAL route every 6 hours As needed as needed with food; 30 tablet. - Medication Reconciliation Form, Thank You Letter, Antibiotic Education, Prescription Opioid Use form. - Follow up: Private Physician; When: 2 - 3 days; Reason: Recheck today's complaints, Continuance of care, Re-evaluation by your physician. - Problem is new. - Symptoms have improved. Signatures: Dispatcher [employer] EDMS Samantha Cifuentes RN RN aj1 Shahram Wagner MD MD cha Attema, Lee RN RN la1 Dominic Zendejas, RN RN jb4 Corrections: (The following items were deleted from the chart) 19:10 18:20 05/27/2019 18:20 Discharged to Home. Impression: Type 2 diabetes mellitus; jb4 Abdominal tenderness. Condition is Stable. Forms are Medication Reconciliation Form, Thank You Letter, Antibiotic Education, Prescription Opioid Use. Follow up: Private Physician; When: 2 - 3 days; Reason: Recheck today's complaints, Continuance of care, Re-evaluation by your physician. Problem is new. Symptoms have improved. tori
--- NOTE | 2019-05-27 18:21 | ER ---
Nurse's Notes [facility] Name: Lucy Lu Age: 58 yrs Sex: Female : 1960 Arrival Date: 05/27/2019 Time: 16:25 Bed 16 Private MD: Diagnosis: Type 2 diabetes mellitus;Abdominal tenderness Presentation: 05/27 16:34 Presenting complaint: Patient states: I am having pain in my right flank area. Last la1 week I thought I had a UTI but they told me I had protein in my urine but they did give me cephalexin. Transition of care: patient was not received from another setting of care. Onset of symptoms was May 27, 2019. Risk Assessment: Do you want to hurt yourself or someone else? Patient reports no desire to harm self or others. Initial Sepsis Screen: Does the patient meet any 2 criteria? No. Patient's initial sepsis screen is negative. Does the patient have a suspected source of infection? No. Patient's initial sepsis screen is negative. Care prior to arrival: None. 16:34 Method Of Arrival: Ambulatory la1 16:34 Acuity: IFEANYI 3 la1 Historical: - Allergies: 16:36 No Known Allergies; la1 - PMHx: 16:36 Diabetes - NIDDM; Hyperlipidemia; Hypertension; la1 - Immunization history:: Adult Immunizations up to date. - Social history:: Smoking status: Patient uses tobacco products, smokes one pack cigarettes per day. - Ebola Screening: : No symptoms or risks identified at this time. Screenin:04 Abuse screen: Denies threats or abuse. Denies injuries from another. Nutritional aj1 screening: No deficits noted. Tuberculosis screening: No symptoms or risk factors identified. 18:36 Fall Risk None identified. aj1 Assessment: 17:04 General: Appears in no apparent distress. uncomfortable, Behavior is calm, cooperative, aj1 appropriate for age. Pain: Complains of pain in right low back and right mid back Pain does not radiate. Neuro: Level of Consciousness is awake, alert, obeys commands. Cardiovascular: Patient's skin is warm and dry. Respiratory: Airway is patent Respiratory effort is even, unlabored, Respiratory pattern is regular, symmetrical. GI: No signs and/or symptoms were reported involving the gastrointestinal system. : Reports flank pain. EENT: No signs and/or symptoms were reported regarding the EENT system. Derm: No signs and/or symptoms reported regarding the dermatologic system. Skin is pink, warm \T\ dry. normal. Musculoskeletal: No signs and/or symptoms reported regarding the musculoskeletal system. Circulation, motion, and sensation intact. 18:04 Reassessment: Patient appears in no apparent distress at this time. No changes from aj1 previously documented assessment. Patient and/or family updated on plan of care and expected duration. Pain level reassessed. Patient is alert, oriented x 3, equal unlabored respirations, skin warm/dry/pink. Vital Signs: 16:36 BP 149 / 84; Pulse 79; Resp 16; Temp 97.6; Pulse Ox 98% on R/A; Weight 82.55 kg; Height la1 5 ft. 5 in. (165.10 cm); 18:05 BP 138 / 71; Pulse 67; Resp 18; Pulse Ox 98% on R/A; aj1 16:36 Body Mass Index 30.29 (82.55 kg, 165.10 cm) la1 ED Course: 16:25 Patient arrived in ED. as 16:36 Triage completed. la1 16:36 Shahram Wagner MD is Attending Physician. tori 16:37 Arm band placed on right wrist. la1 16:47 Samantha Cifuentes, JADE is Primary Nurse. aj1 17:04 Patient has correct armband on for positive identification. Bed in low position. Call aj1 light in reach. Side rails up X 1. 17:04 No provider procedures requiring assistance completed. Inserted saline lock: 20 gauge aj1 in left wrist, using aseptic technique. 17:14 CT completed. Patient tolerated procedure well. Patient moved back from CT. mw3 17:15 CT Stone Protocol In Process Unspecified. EDMS 19:09 IV discontinued, intact, bleeding controlled, No redness/swelling at site. Pressure jb4 dressing applied. Administered Medications: 17:02 Drug: TORadol 30 mg Route: IVP; Site: left antecubital; aj1 18:35 Follow up: Response: No adverse reaction; Pain is decreased aj1 17:03 Drug: NS 0.9% 1000 ml Route: IV; Rate: 1 bolus; Site: left antecubital; aj1 18:34 Follow up: IV Status: Completed infusion; IV Intake: 1000ml aj1 Intake: 18:34 IV: 1000ml; Total: 1000ml. aj1 Outcome: 18:20 Discharge ordered by . tori 19:09 Discharged to home ambulatory. german 19:09 Condition: good 19:09 Discharge instructions given to patient, Instructed on discharge instructions, follow up and referral plans. no drinking with medication, no driving heavy equipment, medication usage, Demonstrated understanding of instructions, follow-up care, medications, Prescriptions given X 3. 19:10 Patient left the ED. jb4 Signatures: Dispatcher [employer] EDMS Samantha Cifuentes, JADE RN aj1 Shahram Wagner MD MD cha Martinez, Amelia as Williams, Irene, Mario Alberto Jose RN, RN RN la1 Dominic Zendejas RN RN jb4 Milly Guzman 3
[2019-05-27 19:52] LABS: Urine Blood TRACE (NEG); Urine Glucose NEGATIVE (NEG); Urine Protein NEGATIVE (NEG); Urine Specific Gravity >1.030 (1.005-1.030)
== END 2019-05-27 19:10 | disposition home or self-care (01) ==
LOC: ER 16:24
DX: R10.819 Abdominal tenderness, unspecified site (principal); E11.9 Type 2 diabetes mellitus without complications; I10 Essential (primary) hypertension; F17.210 Nicotine dependence, cigarettes, uncomplicated
CPT/HCPCS: 96361; 87088; 85025; 87086; 80048; 36415; 80076; 81003; 83690; 76377; 74176; 96374; 99284; J7030

== ENCOUNTER 2020-06-13 19:57 | Emergency (ER) | payer OTHER ==
--- OUTSIDE RECORDS SUMMARY | 2020-06-13 20:00 | XMS REPORT | Continuity of Care Document ---
:1960 Author Organization [facility] t Address [address] [place] [address] Care Team Providers Name Role Phone Unavailable Unavailable Unavailable Problems Condition Condition Condition Status Onset Resolution Last Treating Co mments Source Name Details Category Date Date Treatment Clinician Date Trigger Trigger Problem Active [facility] finger of finger of Luke s - both hands both hands Me moria l [facility] Pain in Pain in Problem Active [facility] right hand right hand Brandi kes - Memoria l [facility] Hypertensi Hypertensi Problem Active [facility] on, on, [facility] - unspecifie unspecifie Me moria d type d type l [facility] Pain of Pain of Problem Active [facility] left hand left hand Luke s - Memoria l [facility] Pain of Pain of Problem Active [facility] finger of finger of Luke s - left hand left hand Jonathan shaji l [facility] Depression Depression Problem Active [facility] with with [facility]ukes - anxiety anxiety Memoria l [facility] Abnormal Abnormal Problem Active [facility] CBC CBC [facility] - [facility] l [facility] Leukocytos Leukocytos Problem Active [facility] is, is, [facility]ukes - unspecifie unspecifie Me moria d type d type l [facility] Hyperlipid Hyperlipid Problem Active [facility] emia, emia, Lukes - unspecifie unspecifie Me moria d d l hyperlipid hyperlipid Ou tpati emia type emia type ent Clinics Other Other Problem Active [facility] chronic chronic [facility] - pain pain Memoria l [facility] Influenza Influenza Problem Active [facility] vaccinatio vaccinatio Brandi kes - n n Memoria administer administer l ed at ed at [facility] current current ent visit visit Clinics Uncontroll Uncontroll Problem Active [facility] ed type 2 ed type 2 Luke s - diabetes diabetes Memori a mellitus mellitus l with with [facility] hyperglyce hyperglyce en t [facility] Clinics Pain in Pain in Problem Active [facility] right right [facility] - finger(s) finger(s) Jonathan shaji l [facility] Arthritis Arthritis Problem Active [facility] - [facility] Abnormal Abnormal Problem Active [facility] renal renal [facility] - function function Memori a test test l [facility] Low back Low back Problem Active [facility] pain pain [facility] Vitamin Vitamin Problem Active [facility] B12 B12 [facility]ukes - deficiency deficiency Me moria l [facility] Pain, Pain, Problem Active [facility] joint, joint, [facility]ukes - hand, hand, Memoria right right l [facility] Trigger Trigger Problem Active [facility] finger, finger, [facility]ukes - right right Memoria index index l finger finger [facility] Hot Hot Problem Active [facility] flashes flashes [facility] - [facility] Fatigue, Fatigue, Problem Active [facility] unspecifie unspecifie Brandi kes - d type d type [facility]oria l [facility] Primary Primary Problem Active [facility] osteoarthr osteoarthr Brandi kes - itis of itis of Memoria right hip right hip l [facility] Trigger Trigger Diagnosis Active [facility] middle middle [facility] - finger of finger of Jonathan shaji right hand right hand l [facility] Allergies, Adverse Reactions, Alerts This patient has no known allergies or adverse reactions. Medications Ordered Filled Start Stop Current Ordering Indication Dosage Frequency Signature Comments Components Source Medication Medication Date Date Medication? Clinician (SIG) Name Name Losartan Losartan 2017-10 Yes Jonah [address] [facility] Potassium-H Potassium-H 0-11 [facility] CTZ 00:00: Memoria 00 l [facility] Escitalopra Escitalopra Yes Jonah [address] [facility] m Oxalate m Oxalate Greene [facility] - [facility] atorvastati atorvastati Yes Jonah not [facility] n n Greene defined [facility] Fenofibrate Fenofibrate Yes Jonah not [facility] defined [facility] Meloxicam Meloxicam Yes Jonah not [facility] defined [facility] Glimepiride Glimepiride Yes Jonah not [facility] defined [facility] Omeprazole Omeprazole Yes Jonah not [facility] Greene defined [facility] Immunizations Ordered Filled Immunization Date Status Comments Sourc e Immunization Name Name Fluckelsix - single Flucelvax - single 2018-07-26 Completed CRISTINA Rojas [facility] - dose syringe dose syringe 00:00:00 [facility] Procedures This patient has no known procedures. Encounters Start End Encounter Admission Attending Care Care Encounter Source Date/Time Date/Time Type Type Clinicians Facility Department ID 2020-01-22 2020-01-22 [facility] [id number] [facility] 13:30:00 13:30:00 [facility] 2020-01-21 2020-01-21 [facility] [id number] [facility] 13:22:00 13:22:00 t [facility] 2019-12-11 2019-12-11 [facility] [id number] [address] 08:48:00 08:48:00 t [facility] 2019-11-21 2019-11-21 [facility] [id number] [address] 10:30:00 10:30:00 t [facility] 2019-08-06 2019-08-06 [facility] [id number] [address] 10[facility]00:00 10:00:00 t [facility] 2019-05-25 2019-05-25 [facility] [id number] [address] 09:38:00 09:38:00 [facility] 2019-04-18 2019-04-18 [facility] [id number] 14:40:00 14:40:00 [facility] 2019-04-12 2019-04-12 [facility] [id number] 09:26:00 09:26:[address] [facility] ent Clinics 2019-01-16 2019-01-16 [facility] [id number] 15:30:00 15:30:00 t [facility] - [facility] 2019-01-03 2019-01-03 [facility] [id number] 10:20:00 10:20:[address] [facility] ent Clinics 2019-01-01 2019-01-01 [facility] [id number] 09:30:00 09:30:[address] [facility] ent Clinics 2018-07-27 2018-07-27 [facility] [id number] 13:38:00 13:38:[address] [facility] ent Clinics 2018-07-26 2018-07-26 [facility] [id number] 08:45:00 08:45:00 [facility] ent Clinics Results This patient has no known results.
--- NOTE | 2020-06-13 20:56 | RAD REPORT ---
EXAM DESCRIPTION: RAD - Lumbar Spine 3 Views - 06/13/2020 8:46 pm CLINICAL HISTORY: PAIN Radiculopathy COMPARISON: No comparisons FINDINGS: Vertebral body heights appear maintained. No compression fracture noted. Mild multilevel s pondylosis is present throughout the lumbar levels. Slight degenerative retrolisthesis of 2-3 mm is n oted of L3 on 4. IMPRESSION: Mild lumbar degenerative changes as detailed.
[2020-06-13] MEDS ORDERED: IBUPROFEN 200 MG TAB PO ONE (21:02)
[2020-06-13] MEDS ORDERED: IBUPROFEN 400 MG TAB ONE (21:02)
--- NOTE | 2020-06-13 21:02 | ER ---
Nurse's Notes [facility] Name: Lucy Lu Age: 59 yrs Sex: Female : 1960 Arrival Date: 06/13/2020 Time: 20:02 Bed 5 Private MD: Diagnosis: Low back pain Presentation: 06/13 20:43 Chief complaint: Patient states: pt states, "I hurt my lower back on Tuesday bending ll2 over and cleaning the bathtub. My back gave out and i couldn't get up for a while. The pain got a little better but now is unbearable.". Coronavirus screen: Client denies travel out of the [place] in the last 14 days. At this time, the client does not indicate any symptoms associated with coronavirus-19. Ebola Screen: Patient negative for fever greater than or equal to 101.5 degrees Fahrenheit, and additional compatible Ebola Virus Disease symptoms. Initial Sepsis Screen: Does the patient meet any 2 criteria? No. Patient's initial sepsis screen is negative. Does the patient have a suspected source of infection? No. Patient's initial sepsis screen is negative. Risk Assessment: Do you want to hurt yourself or someone else? Patient reports no desire to harm self or others. Onset of symptoms was June 08, 2020. 20:43 Method Of Arrival: Ambulatory ll2 20:43 Acuity: IFEANYI 4 ll2 Triage Assessment: 20:48 General: Appears in no apparent distress. Behavior is calm, cooperative, appropriate ll2 for age. Pain: Complains of pain in lumbar area and sacrum Pain currently is 7 out of 10 on a pain scale. Quality of pain is described as aching, tender, pinching, Pain began 2-3 days ago. Is continuous. EENT: No signs and/or symptoms were reported regarding the EENT system. Neuro: Level of Consciousness is awake, alert, obeys commands, Oriented to person, place, time, situation. Cardiovascular: Capillary refill < 3 seconds Patient's skin is warm and dry. Respiratory: Airway is patent Respiratory effort is even, unlabored, Respiratory pattern is regular, symmetrical. GI: No signs and/or symptoms were reported involving the gastrointestinal system. : No signs and/or symptoms were reported regarding the genitourinary system. Derm: Skin is intact, is healthy with good turgor, Skin is dry, Skin is pink, warm \\T\\ dry. Musculoskeletal: Circulation, motion, and sensation intact. Range of motion: intact in all extremities. Historical: - Allergies: 20:47 No Known Allergies; ll2 - Home Meds: 20:47 losartan Oral [Active]; Lovastatin Oral [Active]; unkonwn DM2 med [Active]; ll2 - PMHx: 20:47 Diabetes - NIDDM; Hypertension; Hyperlipidemia; ll2 - PSHx: 20:47 Tonsillectomy; Carpal Tunnel Repair; ll2 - Immunization history:: Adult Immunizations up to date. - Social history:: Smoking status: Patient reports the use of cigarette tobacco products, smokes one pack cigarettes per day. - Family history:: not pertinent. Screenin:50 Abuse screen: Denies threats or abuse. Denies injuries from another. Nutritional rr5 screening: No deficits noted. Tuberculosis screening: No symptoms or risk factors identified. 20:50 Fall Risk None identified. Total Armstrong Fall Scale indicates No Risk (0-24 pts). rr5 Assessment: 20:50 Reassessment: See triage assessment. ll2 21:20 Reassessment: Patient appears in no apparent distress at this time. Patient is alert, rr5 oriented x 3, equal unlabored respirations, skin warm/dry/pink. discharge instruction given and explained without complaints made. Vital Signs: 20:43 BP 141 / 76; Pulse 88; Resp 15; Temp 98.6; Pulse Ox 96% on R/A; ll2 20:49 BP 141 / 76; Pulse 88; Resp 15; Temp 98.6; Pulse Ox 96% on R/A; Pain 7/10; ll2 21:20 BP 131 / 75; Pulse 80; Resp 16; Pulse Ox 99% ; rr5 ED Course: 20:02 Patient arrived in ED. cf2 20:16 Shahram Wagner MD is Attending Physician. tori 20:36 Guille Ramirez RN is Primary Nurse. rr5 20:43 Lumbar Spine (3 Views) XRAY In Process Unspecified. EDMS 20:46 Triage completed. ll2 20:50 Patient has correct armband on for positive identification. Bed in low position. Call rr5 light in reach. 20:50 Arm band placed on left wrist. rr5 20:50 No provider procedures requiring assistance completed. Patient did not have IV access rr5 during this emergency room visit. Administered Medications: 20:53 Drug: Motrin 600 mg Route: PO; ll2 21:20 Follow up: Response: No adverse reaction; Pain is decreased rr5 21:25 Drug: [place] (7.5 mg-325 mg) 1 tabs {Note: rass 0.} Route: PO; rr5 21:28 Follow up: Response: Medication administered at discharge. rr5 Outcome: 21:02 Discharge ordered by . tori 21:25 Discharged to home ambulatory. rr5 21:25 Condition: stable 21:25 Discharge instructions given to patient, Instructed on discharge instructions, follow up and referral plans. medication usage, Demonstrated understanding of instructions, follow-up care, medications, Prescriptions given X 4. 21:28 Patient left the ED. rr5 Signatures: Dispatcher [employer] EDMT Shahram Wagner MD MD cha Roque, Raymond, RN RN rr5 Jacinta Dutta 2 Martina Garcia RN RN ll2
--- NOTE | 2020-06-13 21:02 | EDPHYS ---
Physician Documentation [facility] Name: Lucy Lu Age: 59 yrs Sex: Female : 1960 Arrival Date: 06/13/2020 Time: 20:02 Bed 5 Private MD: SHELLEY Physician Shahram Wagner HPI: 06/13 20:28 This 59 yrs old Female presents to ER via Unassigned with complaints of Back tori Pain. 20:28 The patient presents with pain that is acute. The symptoms are located in the low back. tori Onset: The symptoms/episode began/occurred 2 day(s) ago. The pain does not radiate. Associated signs and symptoms: The patient has no apparent associated signs or symptoms. The problem was sustained when bending over, when lifting. Modifying factors: The patient symptoms are alleviated by remaining still, the patient symptoms are aggravated by bending, lifting, movement. Severity of symptoms: At their worst the symptoms were mild, in the emergency department the symptoms are unchanged. The patient has not experienced similar symptoms in the past. Historical: - Allergies: 20:47 No Known Allergies; ll2 - Home Meds: 20:47 losartan Oral [Active]; Lovastatin Oral [Active]; unkonwn DM2 med [Active]; ll2 - PMHx: 20:47 Diabetes - NIDDM; Hypertension; Hyperlipidemia; ll2 - PSHx: 20:47 Tonsillectomy; Carpal Tunnel Repair; ll2 - Immunization history:: Adult Immunizations up to date. - Social history:: Smoking status: Patient reports the use of cigarette tobacco products, smokes one pack cigarettes per day. - Family history:: not pertinent. ROS: 20:28 Constitutional: Negative for fever, chills, and weight loss, Eyes: Negative for injury, tori pain, redness, and discharge, ENT: Negative for injury, pain, and discharge, Neck: Negative for injury, pain, and swelling, Cardiovascular: Negative for chest pain, palpitations, and edema, Respiratory: Negative for shortness of breath, cough, wheezing, and pleuritic chest pain, Abdomen/GI: Negative for abdominal pain, nausea, vomiting, diarrhea, and constipation, : Negative for injury, bleeding, discharge, and swelling, MS/Extremity: Negative for injury and deformity, Skin: Negative for injury, rash, and discoloration, Neuro: Negative for headache, weakness, numbness, tingling, and seizure, Psych: Negative for depression, anxiety, suicide ideation, homicidal ideation, and hallucinations, Allergy/Immunology: Negative for hives, rash, and allergies, Endocrine: Negative for neck swelling, polydipsia, polyuria, polyphagia, and marked weight changes. 20:28 Back: Positive for decreased range of motion, pain at rest, pain with movement, of the lumbar area. Exam: 20:28 Constitutional: This is a well developed, well nourished patient who is awake, alert, tori and in no acute distress. Head/Face: Normocephalic, atraumatic. Eyes: Pupils equal round and reactive to light, extra-ocular motions intact. Lids and lashes normal. Conjunctiva and sclera are non-icteric and not injected. Cornea within normal limits. Periorbital areas with no swelling, redness, or edema. ENT: Nares patent. No nasal discharge, no septal abnormalities noted. Tympanic membranes are normal and external auditory canals are clear. Oropharynx with no redness, swelling, or masses, exudates, or evidence of obstruction, uvula midline. Mucous membranes moist. Neck: Trachea midline, no thyromegaly or masses palpated, and no cervical lymphadenopathy. Supple, full range of motion without nuchal rigidity, or vertebral point tenderness. No Meningismus. Chest/axilla: Normal chest wall appearance and motion. Nontender with no deformity. No lesions are appreciated. Cardiovascular: Regular rate and rhythm with a normal S1 and S2. No gallops, murmurs, or rubs. Normal PMI, no JVD. No pulse deficits. Respiratory: Lungs have equal breath sounds bilaterally, clear to auscultation and percussion. No rales, rhonchi or wheezes noted. No increased work of breathing, no retractions or nasal flaring. Abdomen/GI: Soft, non-tender, with normal bowel sounds. No distension or tympany. No guarding or rebound. No evidence of tenderness throughout. Female : Normal external genitalia. Skin: Warm, dry with normal turgor. Normal color with no rashes, no lesions, and no evidence of cellulitis. MS/ Extremity: Pulses equal, no cyanosis. Neurovascular intact. Full, normal range of motion. Neuro: Awake and alert, GCS 15, oriented to person, place, time, and situation. Cranial nerves II-XII grossly intact. Motor strength 5/5 in all extremities. Sensory grossly intact. Cerebellar exam normal. Normal gait. Psych: Awake, alert, with orientation to person, place and time. Behavior, mood, and affect are within normal limits. 20:28 Back: pain, that is mild, ROM is painful, normal spinal alignment noted, CVA tenderness, is absent, vertebral tenderness, is not appreciated, muscle spasm, is appreciated in the lumbar area, left low back, left mid back, right mid back and right low back. Vital Signs: 20:43 BP 141 / 76; Pulse 88; Resp 15; Temp 98.6; Pulse Ox 96% on R/A; ll2 20:49 BP 141 / 76; Pulse 88; Resp 15; Temp 98.6; Pulse Ox 96% on R/A; Pain 7/10; ll2 21:20 BP 131 / 75; Pulse 80; Resp 16; Pulse Ox 99% ; rr5 MDM: 20:16 Patient medically screened. [facility] 20:30 Differential diagnosis: chronic back pain, Fatigue Fracture Osteoporosis ruptured disc. [facility] Data reviewed: vital signs, nurses notes, lab test result(s), radiologic studies, plain films. Data interpreted: bus monitor: rate is 65 beats/min, rhythm is regular, Pulse oximetry: on room air is 100 %. Test interpretation: by ED physician or midlevel provider: plain radiologic studies. Counseling: I had a detailed discussion with the patient and/or guardian regarding: the historical points, exam findings, and any diagnostic results supporting the discharge/admit diagnosis, radiology results, the need for outpatient follow up, for definitive care, a family practitioner. Medication response: ibuprofen administration has improved the patient's pain. ED course: pt must follow up ,return if worse. 06/13 21:03 Order name: Urine Dipstick--Ancillary (enter results) tt3 06/13 20:26 Order name: Lumbar Spine (3 Views) XRAY [facility] 06/13 20:26 Order name: Urine Dipstick-Ancillary (obtain specimen); Complete Time: 20:41 [facility] Administered Medications: 20:53 Drug: Motrin 600 mg Route: PO; ll2 21:20 Follow up: Response: No adverse reaction; Pain is decreased rr5 21:25 Drug: [place] (7.5 mg-325 mg) 1 tabs {Note: rass 0.} Route: PO; rr5 21:28 Follow up: Response: Medication administered at discharge. rr5 Disposition: 06/13/20 21:02 Discharged to Home. Impression: Low back pain. - Condition is Stable. - Discharge Instructions: Back Pain, Adult, Musculoskeletal Pain. - Prescriptions for Tylenol- Codeine #3 300-30 mg Oral Tablet - take 2 tablets by ORAL route every 6 hours As needed; 24 tablet. Medrol (Arie) 4 mg Oral Tablets, Dose Pack - take 1 tablet by ORAL route as directed - follow package instructions; 1 packet. Motrin IB 200 mg Oral Tablet - take 2 tablet by ORAL route every 6 hours As needed as needed with food; 30 tablet. Cyclobenzaprine 5 mg Oral Tablet - take 1 tablet by ORAL route 3 times per day As needed; 15 tablet. - Medication Reconciliation Form, Thank You Letter, Antibiotic Education, Prescription Opioid Use form. - Follow up: Private Physician; When: 2 - 3 days; Reason: Recheck today's complaints, Continuance of care, Re-evaluation by your physician. - Problem is new. - Symptoms have improved. Signatures: Dispatcher [employer] EDMS Shahram Wagner MD MD cha Roque, Raymond, RN RN rr5 Martina Garcia RN RN ll2 Corrections: (The following items were deleted from the chart) 21:28 21:02 06/13/2020 21:02 Discharged to Home. Impression: Low back pain. Condition is rr5 Stable. Discharge Instructions: Back Pain, Adult, Musculoskeletal Pain. Prescriptions for Tylenol-Codeine #3 300-30 mg Oral Tablet - take 2 tablets by ORAL route every 6 hours As needed; 24 tablet, Medrol (Arie) 4 mg Oral Tablets, Dose Pack - take 1 tablet by ORAL route as directed - follow package instructions; 1 packet, Motrin IB 200 mg Oral Tablet - take 2 tablet by ORAL route every 6 hours As needed as needed with food; 30 tablet, Cyclobenzaprine 5 mg Oral Tablet - take 1 tablet by ORAL route 3 times per day As needed; 15 tablet. and Forms are Medication Reconciliation Form, Thank You Letter, Antibiotic Education, Prescription Opioid Use. Follow up: Private Physician; When: 2 - 3 days; Reason: Recheck today's complaints, Continuance of care, Re-evaluation by your physician. Problem is new. Symptoms have improved. tori
[2020-06-13 21:18] LABS: Urine Blood 1+ (NEG); Urine Glucose NEGATIVE (NEG); Urine Protein NEGATIVE (NEG); Urine Specific Gravity >1.030 (1.005-1.030); Urine pH 5.5 (5.0-7.0)
[2020-06-13] MEDS ORDERED: HYDROCODONE/APAP 7.5/325 MG TAB ONE (21:33)
[2020-06-17 15:35] VITALS: BP 141/76; TEMP 98.6; O2SAT 96
== END 2020-06-13 21:28 | disposition home or self-care (01) ==
LOC: ER 19:57
DX: M54.5 Low back pain (principal); I10 Essential (primary) hypertension; E11.9 Type 2 diabetes mellitus without complications; E78.5 Hyperlipidemia, unspecified; F17.210 Nicotine dependence, cigarettes, uncomplicated
CPT/HCPCS: 72100; 81003; 99283

== ENCOUNTER 2020-10-03 11:54 | Emergency (ER) | payer OTHER ==
--- OUTSIDE RECORDS SUMMARY | 2020-10-03 11:56 | XMS REPORT | Continuity of Care Document ---
:1960 Author Organization [facility] t Address [address] [place] [address] Care Team Providers Name Role Phone Unavailable Unavailable Unavailable Problems This patient has no known problems. Allergies, Adverse Reactions, Alerts This patient has no known allergies or adverse reactions. Medications Ordered Filled Start Stop Current Ordering Indication Dosage Frequency Signature Comments Components Source Medication Medication Date Date Medication? Clinician (SIG) Name Name Losartan Losartan 2017-10 Yes Jonah [address] [facility] Potassium-H Potassium-H 0-11 [facility] - [facility] CTZ [facility] Escitalopra Escitalopra Yes Jonah [address] [facility] Oxalate m Oxalate [facility] atorvastati atorvastati Yes Jonah not [facility] Fenofibrate Fenofibrate Yes Jonah not [facility] Meloxicam Meloxicam Yes Jonah not [facility] Glimepiride Glimepiride Yes Jonah not [facility] Omeprazole Omeprazole Yes Jonah not [facility] Immunizations Ordered Filled Immunization Date Status Comments Sourc e Immunization Name Name Flucelvax - single Flucelvax - single 2018-07-[address] [facility] - dose syringe dose syringe 00:00:00 [facility] Procedures This patient has no known procedures. Encounters Start End Encounter Admission Attending Care Care Encounter Source Date/Time Date/Time Type Type Clinicians Facility Department ID 2020-09-23 2020-09-23 Outpatient [facility] [id number] [facility] 2020-01-22 2020-01-22 [facility] [id number] [facility] 13:30:00 13:30:00 [facility] 2020-01-21 2020-01-21 [facility] [id number] [address] 13:22:00 13:22:00 [facility] 2019-12-11 2019-12-11 [facility] [id number] [address] 08:48:00 08:48:00 [facility] 2019-11-21 2019-11-21 [facility] [id number] [address] 10[facility]30:00 10:30:00 [facility] 2019-08-06 2019-08-06 [facility] [id number] [address] 10:00:00 10:00:00 [facility] 2019-05-25 2019-05-25 [facility] [id number] 09:38:00 09:38:00 [facility] 2019-04-18 2019-04-18 [facility] [id number] 14[facility]40:00 14:40:00 [facility] 2019-04-12 2019-04-12 [facility] [id number] [address] 09:26:00 09:26:00 [facility] Clin[facility] 2019-01-16 2019-01-16 Outpatient Jessica Alanis [id number] [address] 15:30:00 15:30:00 [facility] 2019-01-03 2019-01-03 Outpatient Jessica Alanis [id number] 10:20:00 10:20:00 [facility] Clinics 2019-01-01 2019-01-01 Outpatient Jessica Alanis [id number] [address] 09:30:00 09:30:00 [facility] 2018-07-27 2018-07-27 Outpatient Jessica Lopezt [id number] [address] 13:38:00 13:38:00 [facility] 2018-07-26 2018-07-26 Outpatient Jessica Alanis [id number] [address] 08:45:00 08:45:00 [facility] Clin[facility] Results This patient has no known results.
--- OUTSIDE RECORDS SUMMARY | 2020-10-03 11:56 | XMS REPORT ---
:[address] [facility] [place] Address [address] [place] [address] Care Team Providers Name Role Phone Jc Unavailable [phone] PROBLEMS Type Condition ICD9-CM XAJ06-[id number] Onset Condition SNOMED Code Notes Code Code Dates Status Problem Depression with F41.8 Active 25925962 anxiety Problem Arthritis M19.90 Active 1588763 Problem Hypertension, I10 Active 50460859 unspecified type Problem Abnormal renal R94.4 Active 668497564 Decreas ed function test GFR. Problem Low back pain M54.5 Active 019766828 Problem Pain in right M79.641 Active 88907535445885638 hand Problem Pain of left M79.642 Active 294496336151926 hand Problem Leukocytosis, D72.829 Active 564155831 unspecified type Problem Other chronic G89.29 Active 15589773 pain Problem Trigger finger M65.30 Active 24639671120411363 Ring finger of both hands of right hand and thumbs of both hands. Problem Pain of finger M79.645 Active 486213399436485 of left hand Problem Depression with F41.8 Active 88642735 anxiety Problem Pain in right M79.644 Active 31576181720678600 finger(s) Problem Influenza Z23 Active 90017634474622 vaccination administered at current visit Problem Arthritis M19.90 Active 6133432 Problem Vitamin B12 E53.8 Active 611266537 deficiency Problem Essential I10 Active 46141893 hypertension Problem Primary M16.11 Active 862644134802285 osteoarthritis of right hip Problem Abnormal CBC R79.89 Active 599613709 Elevated Hgb. Problem Primary M19.041 Active 384345085857787 osteoarthritis of right hand Problem Uncontrolled E11.65 Active 366385040 type 2 diabetes mellitus with hyperglycemia Problem Hyperlipidemia, E78.5 Active 55255765 Signifi cant unspecified hypertriglyc hyperlipidemia eridemia. type Problem Pain, joint, M25.541 Active 0935268731621763 hand, right Problem Trigger finger, M65.321 Active 330128000 right index finger Problem Hot flashes R23.2 Active 036933893 Problem Fatigue, R53.83 Active 15893381 unspecified type ALLERGIES No Known Allergies ENCOUNTERS from 1960 to 2020-10-02 Encounter Location Date Provider Diagnosis [facility] [address] Sep, Jonah Jc Faust t hand pain M79.641 [facility] [address] ; Trigger mi ddle finger [place], [place] of right hand M 65.331 [id number] and Primary osteoarthritis of right hand M19.041 IMMUNIZATIONS Vaccine Route Administration Date Status Lidocaine Unknown Sep 23, 2020 Administered Celestone Soluspan (Betamethasone) Unknown Sep 23, 2020 Administered Flucelvax - single dose syringe IM Intramuscular Jul 26, 2018 Administered Betamethasone Sodium Phosphate Unknown January 22, 2020 A dministered Betamethasone Sodium Phosphate Unknown Aug 06, 2019 A dministered Betamethasone Sodium Phosphate IM Intramuscular January 16, 2019 Administered LIDOCAINE HCL 10MG/ML Unknown January 22, 2020 Administer ed LIDOCAINE HCL 10MG/ML Unknown Aug 06, 2019 Administer ed LIDOCAINE HCL 10MG/ML Unknown January 16, 2019 Administer ed SOCIAL HISTORY Tobacco Use: Social History Observation Description Date Details (start date - stop date) Never Smoker Sex Assigned At : Social History Observation Description Sex Assigned At Unknown Alcohol Screen Question Answer Notes Did you have a drink containing alcohol in the past year? No Did you have a drink containing alcohol in the past year? No Points 0 Points 0 Interpretation Negative Interpretation Negative Tobacco Use/Smoking Question Answer Notes Are you a current smoker Are you a never smoker How often do you smoke cigarettes? every day REASON FOR REFERRAL No Information VITAL SIGNS Height 64.00 in Sep, Weight 208 lbs Sep, Temperature 97.1 degrees Fahrenheit Sep, BMI 35.70 kg/m2 Sep, Blood pressure systolic 142 mm Hg Sep, Blood pressure diastolic 82 mm Hg Sep, MEDICATIONS Medication SIG (Take, Route, Notes Start Date End Date Status Frequency, Duration) Fenofibrate Active atorvastatin Active Glimepiride Active Losartan Potassium-HCTZ 1 tablet Orally Once a 11 Jul, 8 Active 50-12.5 MG day Escitalopram Oxalate 20 mg 1 tablet Orally Once a Active day PROCEDURES No Information RESULTS No Results REASON FOR VISIT F/U RT HAND PAIN- MIDDLE FINGER AND THUMB MEDICAL (GENERAL) HISTORY Type Description Date Medical History Hyperlipemia Medical History HTN (hypertension) Medical History Arthritis Medical History Depression with anxiety Surgical History tubal ligation Surgical History tonsillectomy Goals Section No Information Health Concerns No Information MEDICAL EQUIPMENT No Information MENTAL STATUS No Information FUNCTIONAL STATUS No Information ASSESSMENTS Encounter Date Diagnosis Assessment Notes Treatment Notes Treatm ent Clinical Notes Sep, Right hand pain (ICD-10 - M79.641) Sep, Trigger middle -continue with finger of right hand conservative (ICD-10 - M65.331) treatment fuentes sures -underwent betamethasone injection of the right hand middle finger A1 basilia without complication -ice and rest the hand for 24 hour s -if pain returns, will proceed with A1 basilia release Sep, Primary -proceed with osteoarthritis of NSAIDs as need ed right hand (ICD-10 - -f/u as needed M19.041) PLAN OF TREATMENT Treatment Notes Assessment Notes Clinical Notes Trigger middle finger of right hand -continue with conservat angelica treatment measures-underwent betamethasone injection of the right hand middle finger A1 basilia without complication-ice and rest the hand for 24 hours-if pain returns, will proceed with A1 basilia release Primary osteoarthritis of right hand -proceed with NSAIDs as needed-f/u as needed Next Appt Details 2 Months Reason: Provider Name:Jonah Greene, 2020-11-24 0 1:00:00 PM, [address], [place], [address], Insurance Providers Payer Name Payer Payer Insured Patient Coverage Coverage Address Phone Name Relationship to Start Date End Date Insured [facility] [phone] [facility] [address] [facility] [address]
[2020-10-03] MEDS ORDERED: dexAMETHasone 10 MG/ML VIAL ONE (13:01)
--- NOTE | 2020-10-03 13:09 | RAD REPORT ---
EXAM DESCRIPTION: CT - Soft Tissue Neck W/Contr - 10/03/2020 12:46 pm CLINICAL HISTORY: Neck pain with sore throat COMPARISON: None. TECHNIQUE: Computed axial tomography of the neck was obtained. 50 cc Isovue 300 was administered in travenously. Coronal and sagittal reconstruction was performed. All CT scans are performed using dose optimization technique as appropriate and may include automated exposure control or mA/KV adjustment according to patient size. FINDINGS: The pharynx, tongue base, larynx and subglottic trachea appear unremarkable The parotid, submandibular and thyroid glands appear unremarkable. No lymphadenopathy is seen The sinuses and mastoids are clear. IMPRESSION: Unremarkable examination.
--- NOTE | 2020-10-03 14:14 | EDPHYS ---
Physician Documentation [facility] Name: Lucy Lu Age: 59 yrs Sex: Female : 1960 Arrival Date: 10/03/2020 Time: 11:57 Bed 17 Private MD: ED Physician Bunny Torre HPI: 10/03 14:30 This 59 yrs old Female presents to ER via Ambulatory with complaints of Sore kb Throat. 14:30 The patient has not experienced similar symptoms in the past. The patient has not kb recently seen a physician. 14:30 The patient presents with sore throat. The patient describes throat pain as constant. kb Onset: The symptoms/episode began/occurred yesterday. Severity of symptoms: At their worst the symptoms were moderate, in the emergency department the symptoms are unchanged. Modifying factors: The symptoms are alleviated by nothing, the symptoms are aggravated by swallowing, Patient's oral intake status: good. Associated signs and symptoms: Pertinent positives: Sore throat Pertinent negatives chest pain, chills, cough, diarrhea, dysphagia, earache, fever, flu-like symptoms, headache, nausea, rhinorrhea, shortness of breath, vomiting. Historical: - Allergies: 12:23 No Known Allergies; ll1 - PMHx: 12:23 Diabetes - NIDDM; Hyperlipidemia; Hypertension; ll1 - PSHx: 12:23 Tonsillectomy; Carpal Tunnel Repair; ll1 - Immunization history:: Adult Immunizations up to date. - Social history:: Smoking status: Patient denies any tobacco usage or history of. ROS: 14:29 Constitutional: Negative for fever, chills, and weight loss, Cardiovascular: Negative kb for chest pain, palpitations, and edema, Respiratory: Negative for shortness of breath, cough, wheezing, and pleuritic chest pain, Abdomen/GI: Negative for abdominal pain, nausea, vomiting, diarrhea, and constipation, MS/Extremity: Negative for injury and deformity, Skin: Negative for injury, rash, and discoloration, Neuro: Negative for headache, weakness, numbness, tingling, and seizure. 14:29 ENT: Positive for sore throat. Exam: 14:28 Constitutional: This is a well developed, well nourished patient who is awake, alert, kb and in no acute distress. Head/Face: Normocephalic, atraumatic. Chest/axilla: Normal chest wall appearance and motion. Nontender with no deformity. No lesions are appreciated. Cardiovascular: Regular rate and rhythm with a normal S1 and S2. No gallops, murmurs, or rubs. Normal PMI, no JVD. No pulse deficits. Respiratory: Lungs have equal breath sounds bilaterally, clear to auscultation and percussion. No rales, rhonchi or wheezes noted. No increased work of breathing, no retractions or nasal flaring. Abdomen/GI: Soft, non-tender, with normal bowel sounds. No distension or tympany. No guarding or rebound. No evidence of tenderness throughout. Skin: Warm, dry with normal turgor. Normal color with no rashes, no lesions, and no evidence of cellulitis. MS/ Extremity: Pulses equal, no cyanosis. Neurovascular intact. Full, normal range of motion. Neuro: Awake and alert, GCS 15, oriented to person, place, time, and situation. Cranial nerves II-XII grossly intact. Motor strength 5/5 in all extremities. Sensory grossly intact. Cerebellar exam normal. Normal gait. 14:28 ENT: Posterior pharynx: Airway: normal, no evidence of obstruction, Uvula: erythema, swelling, that is moderate, erythema, that is marked. Vital Signs: 12:14 BP 143 / 88; Pulse 89; Resp 20; Temp 98.4(O); Pulse Ox 95% on R/A; dm5 14:36 BP 141 / 77; Pulse 77; Resp 18; Pulse Ox 96% on R/A; ll1 MDM: 12:10 Patient medically screened. kb 14:11 Data reviewed: vital signs, nurses notes. Data interpreted: Pulse oximetry: on room air kb is 95 %. Interpretation: normal. Counseling: I had a detailed discussion with the patient and/or guardian regarding: the historical points, exam findings, and any diagnostic results supporting the discharge/admit diagnosis, lab results, radiology results, the need for outpatient follow up, a family practitioner, to return to the emergency department if symptoms worsen or persist or if there are any questions or concerns that arise at home. 10/03 13:36 Order name: Group A Streptococcus Rapid Sc; Complete Time: 13:54 EDVT 10/03 13:49 Order name: Throat Culture EDVT 10/03 12:19 Order name: IV Start; Complete Time: 12:20 kb 10/03 13:09 Order name: CT; Complete Time: 13:11 EDMS 10/03 14:25 Order name: CREATININE WHOLE BLOOD; Complete Time: 14:27 EDMS Administered Medications: 12:56 Drug: Decadron - Dexamethasone 10 mg Route: IVP; Site: right antecubital; ll1 14:37 Follow up: Response: No adverse reaction; RASS: Alert and Calm (0) ll1 Disposition: 15:03 Co-signature as Attending Physician, Bunny Torre MD I agree with the assessment and kdr plan of care. Disposition: 10/03/20 14:13 Discharged to Home. Impression: Acute pharyngitis. - Condition is Stable. - Discharge Instructions: Pharyngitis, Btxp-br-Hfav. - Prescriptions for Augmentin 875- 125 mg Oral Tablet - take 1 tablet by ORAL route every 12 hours for 10 days; 20 tablet. - Medication Reconciliation Form, Thank You Letter, Antibiotic Education, Prescription Opioid Use form. - Follow up: Emergency Department; When: As needed; Reason: Worsening of condition. Follow up: Private Physician; When: 2 - 3 days; Reason: Recheck today's complaints, Continuance of care, Re-evaluation by your physician. Signatures: Dispatcher [employer] EDVT Beckie Blair, FURNACE AND WASH EQUIPMENT OPERATOR-C FURNACE AND WASH EQUIPMENT OPERATOR-Bunny White MD MD [facility] Jose C Brandon RN RN ll1 Corrections: (The following items were deleted from the chart) 14:39 14:13 10/03/2020 14:13 Discharged to Home. Impression: Acute pharyngitis. Condition is ll1 Stable. Forms are Medication Reconciliation Form, Thank You Letter, Antibiotic Education, Prescription Opioid Use. Follow up: Emergency Department; When: As needed; Reason: Worsening of condition. Follow up: Private Physician; When: 2 - 3 days; Reason: Recheck today's complaints, Continuance of care, Re-evaluation by your physician. kb
--- NOTE | 2020-10-03 14:14 | ER ---
Nurse's Notes [facility] Name: Lucy Lu Age: 59 yrs Sex: Female : 1960 Arrival Date: 10/03/2020 Time: 11:57 Bed 17 Private MD: Diagnosis: Acute pharyngitis Presentation: 10/03 12:14 Chief complaint: Patient states: sore throat started yesterday with swelling to right dm5 side of throat. Coronavirus screen: Client denies travel out of the [place] in the last 14 days. sore throat, Client presents with at least one sign or symptom that may indicate coronavirus-19. Standard/surgical mask placed on the client. Ebola Screen: Patient negative for fever greater than or equal to 101.5 degrees Fahrenheit, and additional compatible Ebola Virus Disease symptoms Patient denies exposure to infectious person. Patient denies travel to an Ebola-affected area in the 21 days before illness onset. No symptoms or risks identified at this time. Initial Sepsis Screen: Does the patient meet any 2 criteria? No. Patient's initial sepsis screen is negative. Does the patient have a suspected source of infection? Yes: Other: throat. Risk Assessment: Do you want to hurt yourself or someone else? Patient reports no desire to harm self or others. Onset of symptoms was October 02, 2020. 12:14 Method Of Arrival: Ambulatory dm5 12:14 Acuity: IFEANYI 3 dm5 Triage Assessment: 14:37 General: Appears in no apparent distress. Behavior is calm, cooperative. ll1 Historical: - Allergies: 12:23 No Known Allergies; ll1 - PMHx: 12:23 Diabetes - NIDDM; Hyperlipidemia; Hypertension; ll1 - PSHx: 12:23 Tonsillectomy; Carpal Tunnel Repair; ll1 - Immunization history:: Adult Immunizations up to date. - Social history:: Smoking status: Patient denies any tobacco usage or history of. Screenin:23 Abuse screen: Denies threats or abuse. Nutritional screening: No deficits noted. ll1 Tuberculosis screening: No symptoms or risk factors identified. Fall Risk IV access (20 points). Total Armstrong Fall Scale indicates No Risk (0-24 pts). Assessment: 12:24 Pain: Complains of pain in neck Quality of pain is described as aching. Respiratory: ll1 Airway is patent Trachea midline Respiratory effort is even, unlabored, Respiratory pattern is regular, symmetrical, Breath sounds are clear bilaterally. EENT: Reports pain when swallowing. 13:25 Reassessment: Patient and/or family updated on plan of care and expected duration. Pain ll1 level reassessed. Patient is alert, oriented x 3, equal unlabored respirations, skin warm/dry/pink. 14:25 Reassessment: Patient and/or family updated on plan of care and expected duration. Pain ll1 level reassessed. Patient is alert, oriented x 3, equal unlabored respirations, skin warm/dry/pink. 14:38 EENT: Throat is clear. ll1 Vital Signs: 12:14 BP 143 / 88; Pulse 89; Resp 20; Temp 98.4(O); Pulse Ox 95% on R/A; dm5 14:36 BP 141 / 77; Pulse 77; Resp 18; Pulse Ox 96% on R/A; ll1 ED Course: 11:57 Patient arrived in ED. rg4 12:10 Beckie Blair FNP-C [facility]. kb 12:10 Bunny Torre MD is Attending Physician. kb 12:18 Triage completed. dm5 12:20 Jose C Brandon, JADE is Primary Nurse. ll1 12:22 Arm band placed on Patient placed in an exam room, on a stretcher. ll1 12:23 Inserted saline lock: 20 gauge in right antecubital area, using aseptic technique. ll1 Blood collected. 13:22 Strep swab sent to lab. jp3 13:56 Patient has correct armband on for positive identification. Bed in low position. Call ll1 light in reach. Side rails up X 1. 14:38 No provider procedures requiring assistance completed. IV discontinued, intact, ll1 bleeding controlled, No redness/swelling at site. Pressure dressing applied. Administered Medications: 12:56 Drug: Decadron - Dexamethasone 10 mg Route: IVP; Site: right antecubital; ll1 14:37 Follow up: Response: No adverse reaction; RASS: Alert and Calm (0) ll1 Outcome: 14:13 Discharge ordered by . kb 14:38 Discharged to home ambulatory. ll1 14:38 Condition: stable 14:38 Discharge instructions given to patient, Instructed on discharge instructions, follow up and referral plans. medication usage, Demonstrated understanding of instructions, follow-up care, medications, Prescriptions given X 1. 14:39 Patient left the ED. ll1 Signatures: Beckie Blair, GARY CHRISTIANSON-Vero Verde, JADE RN [email or web address] Tamara Salazar4 Daryl Zurita jp3 Jose C Brandon RN RN ll1
[2020-10-06 14:36] VITALS: TEMP 98.4
[2020-10-06 14:37] VITALS: BP 141/77; O2SAT 96
== END 2020-10-03 14:39 | disposition home or self-care (01) ==
LOC: ER 11:54
DX: J02.9 Acute pharyngitis, unspecified (principal); I10 Essential (primary) hypertension
CPT/HCPCS: 87070; 82565; 87081; 70491; 96374; 99284; Q9967; J1100

== ENCOUNTER 2020-11-11 17:42 | Emergency (ER) | payer OTHER ==
--- OUTSIDE RECORDS SUMMARY | 2020-11-11 17:44 | XMS REPORT | Continuity of Care Document ---
:1960 Author Organization [facility] t Address [address] [place] [address] Care Team Providers Name Role Phone Unavailable [...] [facility] - dose syringe dose syringe 00:00:00 [facility] Procedures This patient has no known procedures. Encounters Start End Encounter Admission Attending Care Care Encounter Source Date/Time Date/Time Type Type Clinicians Facility Department ID 2020-09-23 2020-09-23 Outpatient [facility] [id number] [facility] 2020-01-22 2020-01-22 [facility] [id number] 13:30:00 13:30:00 [facility] 2020-01-21 2020-01-21 [facility] [id number] 13:22:00 13:22:00 [facility] 2019-12-11 2019-12-11 [facility] [id number] 08:48:00 08:48:00 [facility] 2019-11-21 2019-11-21 [facility] [id number] 10:30:00 10:30:00 [facility] 2019-08-06 2019-08-06 [facility] [id number] 10:00:00 10:00:00 [facility] 2019-05-25 2019-05-25 [facility] [id number] 09:38:00 09:38:00 [facility] 2019-04-18 2019-04-18 [facility] [id number] 14:40:00 14:40:00 [facility] 2019-04-12 2019-04-12 [facility] [id number] 09:26:00 09:26:00 [facility] 2019-01-16 2019-01-16 Outpatient Jessica Alanis [id number] 15:30:00 15:30:00 [facility] ent Clinics 2019-01-03 2019-01-03 Outpatient Jessica Alanis [id number] 10:20:00 10:20:00 [facility] ent Clinics 2019-01-01 2019-01-01 Outpatient Jessica Alanis [id number] 09:30:00 09:30:00 [facility] ent Clinics 2018-07-27 2018-07-27 Outpatient Jessica Lopezt [id number] 13:38:00 13:38:00 [facility] ent Clinics 2018-07-26 2018-07-26 Outpatient Jessica Alanis [id number] 08:45:00 08:45:00 [facility] ent Clinics Results This patient has no known results.
--- NOTE | 2020-11-11 19:55 | RAD REPORT ---
EXAM DESCRIPTION: RAD - Shoulder Right 2 View - 11/11/2020 7:33 pm CLINICAL HISTORY: Right shoulder pain FINDINGS: No fracture or dislocation is seen. Calcification adjacent to the humeral head may indicat e calcific tendinitis Moderate narrowing of the AC joint with small osteophytes
--- NOTE | 2020-11-11 21:29 | EDPHYS ---
Physician Documentation [facility] Name: Lucy uL Age: 59 yrs Sex: Female : 1960 Arrival Date: 11/11/2020 Time: 17:43 Bed 26 Private MD: ED Physician Jason Perez HPI: 11/12 06:21 This 59 yrs old Female presents to ER via Ambulatory with complaints of tw4 Shoulder Pain. 06:21 The patient or guardian complains of decreased range of motion, an injury. right tw4 shoulder. Onset: The symptoms/episode began/occurred yesterday. Modifying factors: the symptoms are alleviated by nothing. The symptoms are aggravated by nothing. Severity of symptoms: At their worst the symptoms were moderate, in the emergency department the symptoms are unchanged. The patient has not experienced similar symptoms in the past. Historical: - Allergies: 11/11 18:16 No Known Allergies; ss - PMHx: 18:16 Diabetes - NIDDM; Hyperlipidemia; Hypertension; ss - PSHx: 18:16 Tonsillectomy; Carpal Tunnel Repair; ss - Immunization history:: Adult Immunizations up to date. - Social history:: Smoking status: Patient reports the use of cigarette tobacco products, smokes one-half pack cigarettes per day. ROS: 11/12 06:21 Constitutional: Negative for fever, chills, and weight loss, Eyes: Negative for injury, tw4 pain, redness, and discharge, Cardiovascular: Negative for chest pain, palpitations, and edema, Respiratory: Negative for shortness of breath, cough, wheezing, and pleuritic chest pain, Abdomen/GI: Negative for abdominal pain, nausea, vomiting, diarrhea, and constipation, Back: Negative for injury and pain. MS/extremity: Positive for injury or acute deformity, decreased range of motion. Exam: 06:21 Constitutional: This is a well developed, well nourished patient who is awake, alert, tw4 and in no acute distress. Head/Face: Normocephalic, atraumatic. Chest/axilla: Normal chest wall appearance and motion. Nontender with no deformity. No lesions are appreciated. Cardiovascular: Regular rate and rhythm with a normal S1 and S2. No gallops, murmurs, or rubs. Normal PMI, no JVD. No pulse deficits. Respiratory: Lungs have equal breath sounds bilaterally, clear to auscultation and percussion. No rales, rhonchi or wheezes noted. No increased work of breathing, no retractions or nasal flaring. Abdomen/GI: Soft, non-tender, with normal bowel sounds. No distension or tympany. No guarding or rebound. No evidence of tenderness throughout. Skin: Warm, dry with normal turgor. Normal color with no rashes, no lesions, and no evidence of cellulitis. MS/ Extremity: Pulses equal, no cyanosis. Neurovascular intact. Full, normal range of motion. Vital Signs: 11/11 18:13 Pulse 72; Resp 16; Temp 97.2(TE); Pulse Ox 97% on R/A; Weight 96.16 kg; Height 5 ft. 5 ss in. (165.10 cm); Pain 0/10; 18:16 BP 123 / 79; ss 21:01 BP 149 / 63; Pulse 80; Resp 16; Pulse Ox 100% on R/A; vg1 18:13 Body Mass Index 35.28 (96.16 kg, 165.10 cm) ss MDM: 21:12 Patient medically screened. tw4 11/12 06:21 Differential diagnosis: Anterior dislocation with fracture, Anterior dislocation tw4 without fracture, Posterior dislocation with fracture, Posterior dislocation without fracture, humeral head fracture. Data reviewed: vital signs, nurses notes. Data interpreted: Pulse oximetry: Interpretation: normal. Counseling: I had a detailed discussion with the patient and/or guardian regarding: the historical points, exam findings, and any diagnostic results supporting the discharge/admit diagnosis, radiology results. Special discussion: I discussed with the patient/guardian in detail that at this point there is no indication for admission to the hospital. It is understood, however, that if the symptoms persist or worsen the patient needs to return immediately for re-evaluation. 11/11 19:13 Order name: Shoulder Right (2 View) XRAY; Complete Time: 21:13 tw4 11/11 21:31 Order name: Shoulder Immobilizer; Complete Time: 21:51 tw4 Administered Medications: 11/11 21:42 Drug: TORadol 60 mg Route: IM; Site: left deltoid; vg1 21:42 Follow up: Response: Medication administered at discharge. vg1 Disposition: 11/11/20 21:28 Discharged to Home. Impression: Strain of muscle(s) and tendon(s) of the rotator cuff of right shoulder. - Condition is Stable. - Discharge Instructions: Shoulder Sprain. - Prescriptions for ketorolac 10 mg Oral tablet - take 1 tablet by ORAL route every 4-6 hours not to exceed 40 mg in 24hrs; 10 tablet. - Medication Reconciliation Form, Thank You Letter, Antibiotic Education, Prescription Opioid Use form. - Follow up: Private Physician; When: Upon discharge from the Emergency Department; Reason: Recheck today's complaints, Continuance of care, Re-evaluation by your physician. Follow up: Seth Nelson MD; When: Upon discharge from the Emergency Department; Reason: Recheck today's complaints, Continuance of care, Re-evaluation by your physician. Follow up: Parveen Amezquita MD; When: Upon discharge from the Emergency Department; Reason: Recheck today's complaints, Continuance of care, Re-evaluation by your physician. - Problem is new. - Symptoms have improved. Signatures: Dispatcher [employer] Caprice Pelayo RN RN Jason Perez MD MD tw4 Jade Salazar RN RN vg1 Corrections: (The following items were deleted from the chart) 21:51 21:28 11/11/2020 21:28 Discharged to Home. Impression: Strain of muscle(s) and vg1 tendon(s) of the rotator cuff of right shoulder. Condition is Stable. Forms are Medication Reconciliation Form, Thank You Letter, Antibiotic Education, Prescription Opioid Use. Follow up: Private Physician; When: Upon discharge from the Emergency Department; Reason: Recheck today's complaints, Continuance of care, Re-evaluation by your physician. Follow up: Seth Nelson; When: Upon discharge from the Emergency Department; Reason: Recheck today's complaints, Continuance of care, Re-evaluation by your physician. Follow up: Parveen Amezquita; When: Upon discharge from the Emergency Department; Reason: Recheck today's complaints, Continuance of care, Re-evaluation by your physician. Problem is new. Symptoms have improved. tw4
--- NOTE | 2020-11-11 21:29 | ER ---
Nurse's Notes [facility] Name: Lucy Lu Age: 59 yrs Sex: Female : 1960 Arrival Date: 11/11/2020 Time: 17:43 Bed 26 [facility] MD: Diagnosis: Strain of muscle(s) and tendon(s) of the rotator cuff of right shoulder Presentation: 11/11 18:13 Chief complaint: Patient states: R shoulder pain with decreased ROM that began ss yesterday. No known injury. Coronavirus screen: Client denies travel out of the [place] in the last 14 days. Ebola Screen: Patient denies exposure to infectious person. Patient denies travel to an Ebola-affected area in the 21 days before illness onset. Initial Sepsis Screen: Does the patient meet any 2 criteria? No. Patient's initial sepsis screen is negative. Does the patient have a suspected source of infection? No. Patient's initial sepsis screen is negative. Risk Assessment: Do you want to hurt yourself or someone else? Patient reports no desire to harm self or others. Onset of symptoms was November 10, 2020. 18:13 Method Of Arrival: Ambulatory ss 18:13 Acuity: IFEANYI 4 ss Historical: - Allergies: 18:16 No Known Allergies; ss - PMHx: 18:16 Diabetes - NIDDM; Hyperlipidemia; Hypertension; ss - PSHx: 18:16 Tonsillectomy; Carpal Tunnel Repair; ss - Immunization history:: Adult Immunizations up to date. - Social history:: Smoking status: Patient reports the use of cigarette tobacco products, smokes one-half pack cigarettes per day. Screenin:01 Abuse screen: Denies threats or abuse. Nutritional screening: No deficits noted. vg1 Tuberculosis screening: No symptoms or risk factors identified. Fall Risk No fall in past 12 months (0 pts). No secondary diagnosis (0 pts). No IV (0 pts). Ambulatory Aid- None/Bed Rest/Nurse Assist (0 pts). Gait- Normal/Bed Rest/Wheelchair (0 pts) Mental Status- Oriented to own ability (0 pts). Total Armstrong Fall Scale indicates No Risk (0-24 pts). Assessment: 21:00 General: Appears in no apparent distress. comfortable, Behavior is calm, cooperative. vg1 Pain: Complains of pain in Right shoulder Pain currently is 0 out of 10 on a pain scale. at worst was 10 out of 10 on a pain scale. Alleviated by rest, Aggravated by repositioning. Neuro: Level of Consciousness is awake, alert, obeys commands, Oriented to person, place, time, situation. Cardiovascular: Capillary refill < 3 seconds in bilateral fingers. Respiratory: Airway is patent Respiratory effort is even, unlabored. Derm: Skin is intact, is healthy with good turgor. Musculoskeletal: Range of motion: limited in right shoulder. Vital Signs: 18:13 Pulse 72; Resp 16; Temp 97.2(TE); Pulse Ox 97% on R/A; Weight 96.16 kg; Height 5 ft. 5 ss in. (165.10 cm); Pain 0/10; 18:16 BP 123 / 79; ss 21:01 BP 149 / 63; Pulse 80; Resp 16; Pulse Ox 100% on R/A; vg1 18:13 Body Mass Index 35.28 (96.16 kg, 165.10 cm) ED Course: 17:43 Patient arrived in ED. ag5 18:15 Triage completed. ss 18:16 Arm band placed on right wrist. ss 19:14 Jason Perez MD is Attending Physician. tw4 19:33 Shoulder Right (2 View) XRAY In Process Unspecified. EDMS 20:47 Jade Salazar, RN is Primary Nurse. vg1 21:01 Patient has correct armband on for positive identification. Bed in low position. Call vg1 light in reach. 21:27 Seth Nelson MD is Referral Physician. tw4 21:27 Parveen Amezquita MD is Referral Physician. tw4 21:51 No provider procedures requiring assistance completed. Patient did not have IV access vg1 during this emergency room visit. Administered Medications: 21:42 Drug: TORadol 60 mg Route: IM; Site: left deltoid; vg1 21:42 Follow up: Response: Medication administered at discharge. vg1 Outcome: 21:28 Discharge ordered by . tw4 21:51 Discharged to home ambulatory. vg1 21:51 Condition: stable 21:51 Discharge instructions given to patient, Instructed on discharge instructions, follow up and referral plans. medication usage, Demonstrated understanding of instructions, follow-up care, medications, Prescriptions given X 1. 21:51 Patient left the ED. vg1 Signatures: Dispatcher [employer] Caprice Esposito, RN RN ss Jason Perez MD MD tw4 Glenda Ellington Victoria, RN RN vg1
[2020-11-11] MEDS ORDERED: KETOROLAC 30 MG/ML INJ ONE (21:46)
[2020-11-11 21:58] VITALS: TEMP 97.2
[2020-11-11 22:01] VITALS: BP 149/63; O2SAT 100
== END 2020-11-11 21:51 | disposition home or self-care (01) ==
LOC: ER 17:42
DX: S46.011A Strain of muscle(s) and tendon(s) of the rotator cuff of right shoulder, initial encounter (principal); I10 Essential (primary) hypertension; F17.210 Nicotine dependence, cigarettes, uncomplicated
CPT/HCPCS: 96372; 99283